=== PATIENT | male | born 1960 | race Caucasian/White ===

== ENCOUNTER → 2021-02-01 10:02 | Outpatient (BNVA) | payer OTHER, SELFPAY | PROVIDERS: PCP Internal Medicine; Visit Provider Internal Medicine | DX: S60.042A Contusion of left ring finger without damage to nail, initial encounter (principal); W23.0XXA Caught, crushed, jammed, or pinched between moving objects, initial encounter | CPT/HCPCS: 73130; 99203 ==

== ENCOUNTER 2023-06-18 08:01 | Outpatient (REF) | payer OTHER, SELFPAY | END 2023-06-18 08:02 | disposition home or self-care (01) | LOC: HO.BBR 08:01 | PROVIDERS: PCP Internal Medicine; Visit Provider Nurse Practitioner Family | DX: D45 Polycythemia vera (principal) | CPT/HCPCS: 85014; 85018; 99195 ==

== ENCOUNTER 2023-09-12 07:56 | Outpatient (REF) | payer OTHER, SELFPAY | END 2023-09-12 07:57 | disposition home or self-care (01) | LOC: HO.BBR 07:56 | PROVIDERS: Visit Provider Nurse Practitioner Family | DX: D45 Polycythemia vera (principal) | CPT/HCPCS: 85018 ==

== ENCOUNTER 2023-12-12 08:09 | Outpatient (REF) | payer OTHER, SELFPAY | END 2023-12-12 08:10 | disposition home or self-care (01) | LOC: HO.BBR 08:09 | PROVIDERS: PCP Internal Medicine; Visit Provider Nurse Practitioner Family | DX: D45 Polycythemia vera (principal) | CPT/HCPCS: 85018; 99195 ==

== ENCOUNTER 2024-03-10 08:05 | Outpatient (REF) | payer OTHER, SELFPAY | END 2024-03-10 08:06 | disposition home or self-care (01) | LOC: HO.BBR 08:05 | PROVIDERS: PCP Internal Medicine; Visit Provider Nurse Practitioner Family | DX: D45 Polycythemia vera (principal) | CPT/HCPCS: 85014; 85018; 99195 ==

== ENCOUNTER 2024-05-25 08:16 | Outpatient (REF) | payer OTHER, SELFPAY | END 2024-05-25 08:17 | disposition home or self-care (01) | LOC: HO.BBR 08:16 | PROVIDERS: Visit Provider Nurse Practitioner Family | DX: D45 Polycythemia vera (principal) | CPT/HCPCS: 85014; 85018; 99195 ==

== ENCOUNTER 2024-07-20 08:12 | Outpatient (REF) | payer OTHER, SELFPAY ==
--- OUTSIDE RECORDS SUMMARY | 2024-07-20 08:45 | XMS_ITS | Patient Health Record ---
Author Organization Bella Concepcion MD Address [address] [phone] Care Team Providers Care Steelscope Operator Name Role Phone Bella Concepcion Primary Care Provider Nikole Hare Unavailable [phone] Allergies No Known Allergies Results Component Value Reference Range Notes CBC With Differential/Platel [id number] Reviewed date:01/22/2024 05:42:52 PM Interpretation: Performing Lab:[facility], [address] [place] [address], Phone - [phone], Director - Esther Notes/Report: Test(s) 188483-Oymgkxe microti IgG was developed and its performance characteristics determined by [facility]. It has not been cleared or approved by the Food and Drug Administration. WBC 7.1 3.4-10.8 x10E3/uL RBC 5.74 4.14-5.80 x10E6/uL Hemoglobin 17.3 13.0-17.7 g/dL Hematocrit 52.3 37.5-51.0 % MCV 91 79-97 fL MCH 30.1 26.6-33.0 pg MCHC 33.1 31.5-35.7 g/dL RDW 13.9 11.6-15.4 % Platelets 193 150-450 x10E3/uL Neutrophils 58 Not Estab. % Lymphs 34 Not Estab. % Monocytes 7 Not Estab. % Eos 1 Not Estab. % Basos 0 Not Estab. % Neutrophils (Absolute) 4.1 1.4-7.0 x10E3/uL Lymphs (Absolute) 2.4 0.7-3.1 x10E3/uL Monocytes(Absolute) 0.5 0.1-0.9 x10E3/uL Eos (Absolute) 0.1 0.0-0.4 x10E3/uL Baso (Absolute) 0.0 0.0-0.2 x10E3/uL Immature Granulocytes 0 Not Estab. % Immature Grans (Abs) 0.0 0.0-0.1 x10E3/uL Sedimentation Rate-[facility] [id number] Reviewed date:01/22/2024 05:42:52 PM Interpretation: Performing Lab:[facility] [address], Phone - [phone], Director - [facility] Notes/Report: Test(s) 615369-Rooresa microti IgG was developed and its performance characteristics determined by [facility]. It has not been cleared or approved by the Food and Drug Administration. Sedimentation Rate-[facility] 7 0-30 mm/hr C-Reactive Protein, Quant-00 6627 Reviewed date:01/22/2024 05:42:52 PM Interpretation: Performing Lab:[facility] [address], Phone - [phone], Director - [facility] Notes/Report: Test(s) 600709-Mrrzsyn microti IgG was developed and its performance characteristics determined by [facility]. It has not been cleared or approved by the Food and Drug Administration. C-Reactive Protein, Quant 2 0-10 mg/L Tick-borne Disease Ab Profil [id number] Reviewed date:01/22/2024 05:42:52 PM Interpretation: Performing Lab:[facility] [address], Phone - [phone], Director - [facility] Notes/Report: Test(s) 064442-Aflgeor microti IgG was developed and its performance characteristics determined by [facility]. It has not been cleared or approved by the Food and Drug Administration. Lyme Total Antibody PETRA Negative Negative Lyme antibodies not detected. Reflex testing is not indicated. No laboratory evidence of infection with B. burgdorferi (Lyme disease). Negative results may occur in patients recently infected (less than or equal to 14 days) with B. burgdorferi. If recent infection is suspected, repeat testing on a new sample collected in 7 to 14 days is recommended. Babesia microti IgG <1:10 Neg:<1:10 E. chaffeensis IgG Negative Neg:<1:64 A. phagocytophilum IgG Negative Neg:<1:64 Result Comments: Antibody titers may be negative in the first 7-10 days of illness. A four-fold rise in IgG antibody titers for Babesia microti, Anaplasma phagocytophilum, and/or Ehrlichia chaffeensis in paired samples (acute and convalescent) supports the diagnosis of babesiosis, anaplasmosis, and/or ehrlichiosis, respectively. PDF Report Reviewed date:01/22/2024 05:42:53 PM Interpretation: Performing Lab:[facility], [address] [place] [address], [place], Phone - [phone], Director - Esther Notes/Report: Test(s) 450014-Zibdrjg microti IgG was developed and its performance characteristics determined by [facility]. It has not been cleared or approved by the Food and Drug Administration. CBC Reviewed date:08/26/2023 08:09:57 AM Interpretation: Performing Lab: Notes/Report: Original Ordering Provider: MIGUEL ANGEL DOCKERY PA-C [employer], [place] [address] Journeyman Painter - [employer]aning MD WBC 8.4 4.8-10.8 x10-3/uL RBC 5.6 4.5-5.5 x10-6/uL HEMOGLOBIN 16.3 13.5-17.5 g/dL HEMATOCRIT 50.7 42-54 % MCV 90.7 79-98 fL MCH 29.2 27-32 pg MCHC 32.1 32-37 g/dL RDW 13.8 11-15 % PLT COUNT 211 130-400 x10-3/uL MEAN PLATELET VOLUME 10.4 7-11 fL NRBC % AUTO 0.0 <1 % NRBC # AUTO 0.00 <0.1 x10-3/uL TOTAL AND FREE TESTOSTERONE Reviewed date:08/26/2023 08:09:57 AM Interpretation: Performing Lab: Notes/Report: FEMALES: pre-menopausal 10.8 - >180 post-menopausal 23.2 - 159.1 MALES: 21-49 years 14.6 - 94.6 50-89 years 21.6 - 113.1 CHILDREN: No established reference range Over the counter supplements containing high doses of biotin may interfere with this assay. If interference is suspected, patients shoud be retested after refraining from biotin supplements for 72 hours. Note Original Ordering Provider: MIGUEL ANGEL DOCKERY PA-C [employer], a member of [address] [address] Journeyman Painter - Omayra Cleaning MD TESTOSTERONE 757 229-902 ng/dL Note Original Ordering Provider: MIGUEL ANGEL DOCKERY PA-C [employer], [place] [address] Journeyman Painter - Omayra Cleaning MD ALBUMIN 4.2 3.2-5.0 G/dL SEX HORMONE BINDING GLOBULIN 19.9 FREE TESTOSTERONE 22.2 4.6-22.4 ng/dL BIOAVAILABLE TESTOSTERONE 507.6 110.0-575.0 ng/ dL CBC Reviewed date:03/10/2024 08:23:33 AM Interpretation: Performing Lab: Notes/Report: Original Ordering Provider: JUAN HUNTER [employer], [place] [address] Journeyman Painter - Omayra Cleaning MD WBC 10.0 4.8-10.8 x10-3/uL RBC 6.2 4.5-5.5 x10-6/uL HEMOGLOBIN 18.5 13.5-17.5 g/dL HEMATOCRIT 55.8 42-54 % MCV 89.7 79-98 fL MCH 29.7 27-32 pg MCHC 33.2 32-37 g/dL RDW 13.7 11-15 % PLT COUNT 215 130-400 x10-3/uL MEAN PLATELET VOLUME 9.8 7-11 fL NRBC % AUTO 0.0 <1 % NRBC # AUTO 0.00 <0.1 x10-3/uL PROSTATIC SPECIFIC ANTIGEN Reviewed date:03/10/2024 08:23:34 AM Interpretation: Performing Lab: Notes/Report: Original Ordering Provider: JUAN HUNTER PROSTATIC SPECIFIC ANTIGEN 0.8 0.0-4.0 ng/mL The Siemens Advia Nimbus Conceptsaur Chemiluminescent Immunoassay is used. Results obtained with different assay methods or kits cannot be used interchangeably. Results cannot be interpreted as absolute evidence of the presence or absence of malignant disease TOTAL AND FREE TESTOSTERONE Reviewed date:03/10/2024 08:23:34 AM Interpretation: Performing Lab: Notes/Report: FEMALES: pre-menopausal 10.8 - >180 post-menopausal 23.2 - 159.1 MALES: 21-49 years 14.6 - 94.6 50-89 years 21.6 - 113.1 CHILDREN: No established reference range Over the counter supplements containing high doses of biotin may interfere with this assay. If interference is suspected, patients shoud be retested after refraining from biotin supplements for 72 hours. TESTOSTERONE 235 229-902 ng/dL Note [employer], a member of [address] [address] Journeyman Painter - Omayra Cleaning MD ALBUMIN 4.4 3.2-5.0 G/dL SEX HORMONE BINDING GLOBULIN 20.3 FREE TESTOSTERONE 5.8 4.6-22.4 ng/dL BIOAVAILABLE TESTOSTERONE 138.0 110.0-575.0 ng/ dL Reason For Referral No Information Medications Medication SIG (Take, Route, Frequency, Duration) Notes Start Date End Date Status Farxiga 10 MG TAKE 1 TABLET BY MOUTH EVERY DAY for 90 days Brand name Only Active Carvedilol 3.125 MG 1 tablet with food Oral Twice a day for 30 Days Active Pravastatin Sodium 40 MG TAKE 1 TABLET B Y MOUTH EVERY DAY for 90 Active Spironolactone 25 MG 1 tablet Orally for 30 day(s) Active Centrum Silver - as directed Orally Active Entresto 97-103 MG TAKE 1 TABLET BY MOUTH TWICE A DAY for 90 Active Finasteride 5 MG TAKE 1 TABLET BY MOUTH EVERY DAY Oral for 90 Active Probiotic - as directed Orally Active Immunizations Vaccine Route Administration Date Status Comme nts Td (adult) preservative free Unknown 06/21/2004 Administered Td (adult) preservative free Unknown 05/12/2012 Administered Pneumococcal polysaccharide PPV23 Unknown 05/03/2008 Administered Influenza-Afluria (IIV4) IM Intramuscular 03/14/2017 Admin istered [id number] Afluria-Single IM Intramuscular 03/18/2018 Administered Influenza, seasonal, injectable, preservative free, 4 yrs and above IM Intramuscular 01/18/2016 Administered PWMLY-96-Bppsaqx Vaccine Unknown 06/04/2020 Administere d SONAR-09-Giikbyy Vaccine Unknown 07/05/2020 Administere d *Influenza-Medicare-AS IM Intramuscular 03/13/2021 Adminis tered Social History Tobacco Use: Social History Observation Description Date Details (start date - stop date) Former Smoker NA - NA Alcohol Screen (Audit-C) Question Answer Notes Did you have a drink contain ing alcohol in the past year? Yes How often did you have a dri nk containing alcohol in the past year? 2 to 3 times a week (3 points) How many drinks did you have on a typical day when you were drinking in the past year? 1 or 2 drinks (0 point) How often did you have 6 or more drinks on one occasion in the past year? Never (0 point) Points 3 Interpretation Negative Tobacco Control (Standard) Question Answer Notes Tobacco use: Former smoker How long has it been since you last smoked? 5-10 years Problems Problem Type SNOMED Code ICD Code Onset Dates Problem Status W/U Status Risk Notes Problem Vitamin D deficiency (38902244) Vitamin D deficiency, unspecified (E55.9) Active confirmed Problem Mixed hyperlipidemia (638834655) Mixed hyperlipidemia (E78.2) Active confirmed Problem Tobacco user (866368872) Nicotine dependence, cigarettes, in remission (F17.211) Active confirmed Problem Hypertensive heart AND renal disease (37206052) Hypertensive heart and chronic 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 heart failure, with stage 1 through stage 4 chronic kidney disease, or unspecified chronic kidney disease (I13.10) Active confirmed Problem Cardiomyopathy (95074925) Cardiomyopathy, unspecified (I42.9) Active confirmed Problem Ventricular premature depolarization (994252147) Ventricular premature depolarization (I49.3) Active confirmed Problem Chronic systolic heart failure (882069111) Chronic systolic (congestive) heart failure (I50.22) Active confirmed Problem Impingement syndrome of shoulder region (582548086) Impingement syndrome of right shoulder (M75.41) Active confirmed Problem Chronic kidney disease stage 2 (520225320) Chronic kidney disease, stage 2 (mild) (N18.2) Active confirmed Problem Paresthesia (finding) (20618030) Paresthesia of skin (R20.2) Active confirmed Problem Automatic implantable cardiac defibrillator in situ (246702261) Presence of automatic (implantable) cardiac defibrillator (Z95.810) Active confirmed Problem Benign prostatic hypertrophy without outflow obstruction (085248645) Benign prostatic hyperplasia without lower urinary tract symptoms (N40.0) Active confirmed Problem Body mass index 35.00 to 39.99 (512684711214372) Body mass index [BMI] 37.0-37.9, adult (Z68.37) Active confirmed Problem Ventricular tachycardia (disorder) (01924890) Ventricular tachycardia, unspecified (I47.20) Active confirmed Problem Testicular hypofunction (387428484) Testicular hypofunction (E29.1) Inactive confirmed Problem Tinnitus (21344531) Tinnitus, unspecified ear (H93.19) Inactive confirmed Problem Chronic kidney disease stage 3 (107132025) Chronic kidney disease, stage 3 (moderate) (N18.3) Problem resolved confirmed Vital Signs Heart Rate 83 /min 01/19/2024 Oximetry 97 % 01/19/2024 Height 5 ft 7 in in 01/19/2024 Weight 223 lbs 01/19/2024 BMI 34.92 kg/m2 01/19/2024 Encounters Encounter Location Date Provider Diagnosis Bella Concepcion MD [address] [id number] 01/22/2024 Bella Concepcion MD [address] [id number] 01/31/2024 Bella Concepcion MD [address] [id number] 01/19/2024 Nikole Hare Pain in right elbow M25.521 ; Pain in unspecified joint M25.50 and Trigger finger, right ring finger M65.341 Assessments Encounter Date Diagnosis (ICD Code) Assessment Notes Treatment Notes Treatment Clinical Notes Section Notes 01/19/2024 Pain in unspecified joint (ICD-10 - M25.50) See plan above 01/19/2024 Pain in right elbow (ICD-10 - M25.521) Due to patient his presenting symptoms and normal exam findings on exam today. Will obtain lab work including a tickborne panel given patient's migrating joint pain that has been present for months. 01/19/2024 Trigger finger, right ring finger (ICD-10 - M65.341) Spent much time discussing patient's right ring finger pain and suspected trigger finger. Patient is agreeable to be seen at the [facility] walk-in clinic today as he would benefit from an injection to release tension in his ring finger. Discussed with patient the importance of proper management of a trigger finger to ensure that it does not become contracted where he will require surgical intervention to fix the limited range of motion Plan Of Treatment Pending Test Test Name Order Date 25OH VITAMIN D 06/27/2022 COMPLETE CBC WITH DIFF 06/27/2022 COMPLETE URINALYSIS 06/27/2022 COMPREHENSIVE METABOLIC PANEL 06/27/2022 LIPID PANEL W REFLEX TO DLDL 06/27/2022 PSA 06/27/2022 VITAMIN D, 25-HYDROXY 08/14/2020 VITAMIN D, 25-HYDROXY 01/24/2020 US Bladder 10/05/2019 Next Appt Details Provider Name:Bella Concepcion , 10/06/2024 03:30:00 PM, [address] [place] [address], [address], [place], [place], [phone], Insurance Providers Payer Name Payer Address Payer Phone Subscriber Number Group Number Insured Name Patient Relationship to Insured Coverage Start Date Coverage End Date [employer] [address] [place] [phone] [id number] Jas Saravia Self - patient is the insured Medical (General) History Medical History History ICD Code Dilated cardiomyopathy Essential (primary) hypertension I10 Chronic systolic (congestive) heart fail ure I50.22 Presence of automatic (implantable) card iac defibrillator Z95.810 Ventricular tachycardia I47.2 Chronic kidney disease, stage 3 (moderat e) N18.3 Vitamin D deficiency, unspecified E55.9 Chronic kidney disease, stage 3 (moderat e) (resolved 06/27/2022) undefined Surgical History Surgery Date(Month/Year) automatic implantable cardioverter defib rillator (AICD) shoulder repair, RIGHT umbilical hernia repair Hospitalization History Reason Date(Month/Year)
--- OUTSIDE RECORDS SUMMARY | 2024-07-20 08:45 | XMS_ITS | Clinical Summary ---
Author Organization [address] [place] [address] Address [address] [place] [address] Phone Care Team Providers Care Executive Coordinator Name Role Phone Bella Concepcion MD Primary Care Provider [phone] Allergies No known active allergies Medications aspirin 81 mg EC tablet Take 81 mg by mouth daily. Active cholecalciferol (VITAMIN D-3) 25 mcg (1,000 unit) capsule Take by mouth daily. Active finasteride (PROSCAR) 5 mg tablet Take 5 mg by mouth daily. Active sildenafiL (VIAGRA) 100 mg tablet as needed. Active multivitamin (MULTIPLE VITAMINS ORAL) Take 1 tablet by mouth daily. 01/19/20 14 Active spironolactone (ALDACTONE) 25 mg tablet Take 1 tablet (25 mg total) by mouth 1 (one) time each day. 90 tablet 3 05/03/20 24 Active metoprolol succinate (TOPROL-XL) 25 mg 24 hr tablet TAKE 2 TABLETS BY MOUTH DAILY FOR 360 DAYS. 180 tablet 1 07/01/19 25 Active sacubitriL-vals kayy (Entresto) 97-103 mg per tablet Take 1 tablet by mouth 2 (two) times a day. Take by mouth 2 times daily. 180 each 2 07/15/19 25 025 Active dapagliflozin propanediol (Farxiga) 10 mg tablet Take 1 tablet (10 mg total) by mouth 1 (one) time each day. 90 each 1 07/15/19 25 025 Active pravastatin (PRAVACHOL) 40 mg tablet Take 1 tablet (40 mg total) by mouth at bedtime. 90 each 2 07/15/19 25 025 Active dapagliflozin propanediol (Farxiga) 10 mg tablet Take 10 mg by mouth daily. 03/05/20 22 025 Discontinued(Re order) metoprolol succinate (TOPROL-XL) 25 mg 24 hr tablet Take 2 Tablets by mouth daily for 360 days. 06/24/19 24 025 Discontinued pravastatin (PRAVACHOL) 40 mg tablet Take 40 mg by mouth daily. 025 Discontinued(Re order) sacubitriL-vals kayy (Entresto) 97-103 mg per tablet Take by mouth 2 times daily. 025 Discontinued(Re order) Active Problems Problem Noted Date Diagnosed Date PVC (premature ventricular contraction) 05/07/20 23 ICD (implantable cardioverter-defibrillator) in place 08/19/2022 Overview (04/22/2024): Last Assessment & Plan: Normally functioning ICD. No recent episodes of ventricular tachycardia. 3 years of battery longevity remaining. Postural dizziness with presyncope 04/09/2022 Cardiomyopathy 04/26/2021 JENAE (obstructive sleep apnea) 04/26/2021 Chest pain 01/08/2021 Overview (04/22/2024): Chest discomfort Chest pain Chronic systolic heart failure 01/08/2021 Overview (04/22/2024): Chronic systolic heart failure Last Assessment & Plan: Appears euvolemic on exam today. Remains remarkably active and has been has been losing weight through diet and exercise consistently. He he is on goal-directed medical therapy at maximum tolerated doses. Continue with current current medications, low-sodium diet, low-sodium diet and monitoring of weight. Primary prevention ICD in place. 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 Encounters Date Type Department Care Team Description 07/14/2024 10:40 AM EST Office Visit [facility] Cardiology [facility] - [address] [place] [address] Sherrie Weiss PA PVC (premature ventricular contraction) (Primary Dx); Dyslipidemia; Nonischemic congestive cardiomyopathy (CMS/HCC) 07/14/2024 Telephone [facility] - [address] [place] [address] Jose Kinney MA FMLA (Form dropped off) 05/18/2024 12:20 PM EST Ancillary Procedure [facility] Cardiology [facility] - [address] [place] [address] 05/18/2024 Telephone [facility] - [address] [place] [address] Heydi Rodriges MA from Last 3 Months Immunizations Name Administration Dates Next Due Moderna SARS-CoV-2 COVID-19, mRNA, LNP-S, preservative free 06/04/2020 Social History Tobacco Use Types Packs/Day Years Used Date Smoking Tobacco: Former Cigarettes Q uit: 05/12/2013 Smokeless Tobacco: Never Alcohol Use Standard Drinks/Week Comments Not Currently 1 (1 standard drink = 0.6 oz pur e alcohol) Sex and Gender Information Value Date Recorded Sex Assigned at Not on file Legal Sex Male 6:48 PM EST Gender Identity Not on file Sexual Orientation Not on file Obstetrics History Last Filed Vital Signs Vital Sign Reading Time Taken Comments Blood Pressure 126/78 07/14/2024 11:17 AM EST Pulse 75 07/14/2024 10:45 AM EST Temperature - - Respiratory Rate - - Oxygen Saturation 97% 07/14/2024 10:45 AM EST Inhaled Oxygen Concentration - - Weight 107 kg (236 lb) 07/14/2024 10:45 AM EST Height 170.2 cm (5' 7 ) 07/14/2024 10:45 AM EST Body Mass Index 36.96 07/14/2024 10:45 AM EST Plan of Treatment Upcoming Encounters Date Type Department Care Team (Late st Contact Info) Description 08/19/2024 4:00 PM EDT Ancillary Procedure [facility] Cardiology [facility] - [facility] [address] [place] [address] 03/15/2025 9:55 AM EST Office Visit [facility] [address] [place] [phone] Chester Weiner MD [address] [place] [address] Health Maintenance Due Date Last Done Comments Pneumococcal Vaccine: 50+ Years (1 of 2 - PCV) 1981 Pneumococcal Vaccine: Pediatrics (0 to 5 Years) and At-Risk Patients (6 to 64 Years) (1 of 2 - PCV) 1981 Zoster Vaccines (1 of 2) 2012 Cholesterol Screening (Lipid Panel) 04/20/2022 Colorectal Cancer Screening: Colonoscopy 04/20/2022 Depression Screening 04/20/2022 HIV Screening 04/20/2022 Hepatitis C Screening 04/20/2022 Social Influencers of Health Screening 04/20/2022 Hypertension/CHF/CAD Annual BMP Blood Test 05/07/2024 05/07/2023 DTaP,Tdap,and Td Vaccines (3 - Td or Tdap) 02/12/2034 02/13/2024, 05/23/2012 RSV Immunization Patients 60+ Years Old Completed 01/23/2023 COVID-19 Vaccine Completed 02/13/2024, , 02/16/2022, Additional history exists Influenza Vaccine Completed 02/13/2024, , 03/13/2021 HIB Vaccines Aged Out No longer eligi ble based on patient's age to complete this topic HPV Vaccines Aged Out No longer eligi ble based on patient's age to complete this topic Hepatitis A Vaccines Aged Out No long er eligible based on patient's age to complete this topic Hepatitis B Vaccines Aged Out No long er eligible based on patient's age to complete this topic IPV Vaccines Aged Out No longer eligi ble based on patient's age to complete this topic MMR Vaccines Aged Out No longer eligi ble based on patient's age to complete this topic Meningococcal ACWY Vaccine Aged Out N o longer eligible based on patient's age to complete this topic Meningococcal B Vacine Aged Out No lo nger eligible based on patient's age to complete this topic RSV Immunization Patients Under 20 months Aged Out No longer eligible based on patient's age to complete this topic Varicella Vaccines Aged Out No longer eligible based on patient's age to complete this topic Medical Devices Implanted Type Area Motor Builder Assembler Device Identifier Shelf Expiration Date Model / Serial / Lot Medt-Card Evera Xt Vr [id number] Implanted:02/10 (Quantity not on file) Cardiac ICD [employer] - CARDIAC RHYTH-CRDM EVERA XT VR [id number] / [id number] / Procedures Procedure Name Priority Date/Time Associated Diagnosis Comments ECG 12-LEAD Routine 07/14/2024 10:53 AM EST PVC (premature ventricular contraction) CARDIAC DEVICE CHECK- REMOTE- MURJ Routine 05/18/2024 12:17 PM EST ANNUAL BMP BLOOD TEST Routine 05/07/2023 from Last 3 Months or Most Recently Relevant to Health Maintenance Results * ECG 12 lead (07/14/2024 10:53 AM EST) Ventricular Rate ECG 75 BPM GEMUSE Atrial Rate 75 BPM GEMUSE P-R Interval 180 ms GEMUSE QRS Duration 158 ms GEMUSE Q-T Interval 422 ms GEMUSE QTc 471 ms GEMUSE P Wave [place] 50 degrees GEMUSE R [place] 99 degrees GEMUSE T [place] 47 degrees GEMUSE ECG Interpretation Normal sinus rhythm Right bundle branch block When compared with ECG of 09-JAN-2016 11:28, No significant change was found Confirmed by FRANCO CHAIDEZ ([id number]) on 07/19/2024 4:47:22 AM GEMUSE 07/14/2024 10:5 0 AM EST 07/19/2024 4:47 AM EDT us Sherrie MAIER ECG ORDERABLES Edited Result - Final GEMUSE * Cardiac device check - Remote- MURJ (05/18/2024 12:17 PM EST) Date Time Interrogation Session [id number] CV DEVICE CHECK Type Interrogation Session Remote CV DEVICE CHECK Implantable Pulse Generator Motor Builder Assembler MDT CV DEVICE CHECK Implantable Pulse Generator Type ICD CV DEVICE CHECK Implantable Pulse Generator Model Evera XT VR [id number] CV DEVICE CHECK Implantable Pulse Generator Serial Number [id number] CV DEVICE CHECK Implantable Pulse Generator Implant Date [id number] CV DEVICE CHECK Battery Remaining Longevity 21.0 CV DEVICE CHECK Battery Voltage 2.910 CV D EVICE CHECK Battery CLOTH TESTER QUALITY Trigger 2.727 CV DEVICE CHECK Battery Status Middle of Service CV DEVICE CHECK Capacitor Charge Time 4.224 CV DEVICE CHECK Dileep Statistic RV Percent Paced 0.01 CV DEVICE CHECK Lead Channel Sensing Intrinsic Amplitude 6.250 CV DEVICE CHECK Lead Channel Setting Sensing Sensitivity 0.30 CV DEVICE CHECK Lead Channel Impedance Value 437 CV DEVICE CHECK Lead Channel Pacing Threshold Amplitude 0.875 CV DEVICE CHECK Lead Channel Pacing Threshold Pulse Width 0.4 CV DEVICE CHECK Lead Channel RV Pacing Threshold Date 2024-05-17 CV DEVICE CHECK Lead Channel Setting Pacing Amplitude 2.000 CV DEVICE CHECK Lead Channel Setting Pacing Pulse Width 0.4 CV DEVICE CHECK Dileep Setting Mode (NBG Code) VVI CV DEVICE CHECK Dileep Setting Lower Rate Limit 40 CV DEVICE CHECK Therapy Statistic Recent Shocks Delivered 0 CV DEVICE CHECK Therapy Statistic Recent Shocks Aborted 0 CV DEVICE CHECK Therapy Statistic Recent ATP Delivered 0 CV DEVICE CHECK RV HV Impedance 78 CV D EVICE CHECK Zone Setting Type Category VF CV DEVICE CHECK Rate 200 CV DEVICE CHECK Therapies ATP During Charging, 25Jx1, 35Jx5 CV DEVICE CHECK Zone Setting Status On CV DEVICE CHECK Zone ID 3 CV DEVICE CHECK Zone Setting Type Category VT CV DEVICE CHECK Zone Setting Status Off CV DEVICE CHECK Zone ID 4 CV DEVICE CHECK Zone Setting Type Category VT CV DEVICE CHECK Zone Setting Status Off CV DEVICE CHECK Zone ID 5 CV DEVICE CHECK Zone Setting Type Category VT CV DEVICE CHECK Rate 167 CV DEVICE CHECK Rate 171 CV DEVICE CHECK Zone Setting Status ENABLED CV DEVICE CHECK Zone ID 6 CV DEVICE CHECK Date of Service 2024-05-29 CV DEVICE CHECK Anatomical Region Laterality Modality Device Interroga tion 05/18/2024 12:1 6 AM EST Impressions 05/18/2024 12:13 PM EST Normal Remote: No Events Sent to Triage for HF * Normal Device Function * Alerts or events: None * Battery: OK, 1.75 yrs * Sensing, impedance and thresholds reviewed * Programmed parameters reviewed * Presenting rhythm reviewed * Heart Rate Histograms reviewed * No significant changes noted Heart Failure Diagnostic: Elevated * Heart failure diagnostics assessed through the device * Status: Elevated Narrative Procedure Note Sherrie Weiss PA - 05/18/2024 IMPRESSION: Normal Remote: No Events Sent to Triage for HF * Normal Device Function * Alerts or events: None * Battery: OK, 1.75 yrs * Sensing, impedance and thresholds reviewed * Programmed parameters reviewed * Presenting rhythm reviewed * Heart Rate Histograms reviewed * No significant changes noted Heart Failure Diagnostic: Elevated * Heart failure diagnostics assessed through the device * Status: Elevated Sherrie MAIER CV IMPLANTABLE CARDIAC DEVICE TX OCEDURES Final Result * Annual BMP Blood Test (05/07/2023) Annual BMP Blood Test abstracted Historical Provider MD HEALTH MAINTENANCE Final Result from Last 3 Months or Most Recently Relevant to Health Maintenance Insurance [employer] Advance Directives Documents on File Type Date Recorded Patient Office Employee Expl anation Health Care Decision (hx) 01/21/2014 AD SWARTZ DIRECTIVE Health Care Decision (hx) 01/21/2014 AD SWARTZ DIRECTIVE Health Care Decision (hx) 01/21/2014 AD SWARTZ DIRECTIVE Health Care Decision (hx) 01/21/2014 AD SWARTZ DIRECTIVE Health Care Decision (hx) 01/21/2014 AD SWARTZ DIRECTIVE Health Care Decision (hx) 01/21/2014 AD SWARTZ DIRECTIVE Health Care Decision (hx) 01/21/2014 AD SWARTZ DIRECTIVE Health Care Decision (hx) 01/18/2014 AD SWARTZ DIRECTIVE Health Care Decision (hx) 01/18/2014 AD SWARTZ DIRECTIVE Health Care Decision (hx) 01/18/2014 AD SWARTZ DIRECTIVE Health Care Decision (hx) 01/18/2014 AD SWARTZ DIRECTIVE Health Care Decision (hx) 01/18/2014 AD SWARTZ DIRECTIVE Health Care Decision (hx) 01/18/2014 AD SWARTZ DIRECTIVE Health Care Decision (hx) 01/18/2014 AD SWARTZ DIRECTIVE Care Teams Executive Coordinator Relationship Specialty Start Date End Date Bella Concepcion MD PCP - General 01/15/14
--- OUTSIDE RECORDS SUMMARY | 2024-07-20 08:45 | XMS_ITS ---
Author Organization Bella Concepcion MD Address [address] [place] [phone] Care Team Providers Care Flight Attendant Name Role Phone Bella Concepcion Primary Care Provider [phone] REASON FOR VISIT AWV needed Encounters Encounter Location Date Provider Diagnosis Bella Concepcion MD [address] AD[address] TE [address] [place] [phone] 01/31/2024 Bella Concepcion Plan Of Treatment Next Appt Details Provider Name:Bella Concepcion , 10/06/2024 03:30:00 PM, [address] [place] [address], [phone], Progress Notes * Jas HERNA[birth year]DEZDOB:[birth year] (63 yo M)Acc No.[id number]:01/31/2024 Patient:?Jas HERNANDEZ :1960???Age:63 Y???Sex:Male Address:[address] [place] [address], * true * Date:? Generated for Printi skye/Asher/eTransmitting on:?07/20/2024 08:45 AM EDT
--- OUTSIDE RECORDS SUMMARY | 2024-07-20 08:46 | XMS_ITS | Encounter Summary ---
Author Organization [facility] [place] [address] Care Team Providers Care Electronics Assembler And Tester Name Role Phone Bella Concepcion MD Primary Care Provider [phone] Reason for Visit * Reason Onset Date Comments FMLA 07/14/2024 Form dropped off Encounter Details Date Type Department Care Team (Late st Contact Info) Description 07/14/2024 Telephone [facility] Cardiology [facility] - [address] [facility] [address] [place] [phone] Jose Kinney MA FMLA (Form dropped off) Social History Tobacco Use Types Packs/Day Years [...] on file Sexual Orientation Not on file documented as of this encounter Progress Notes * Jose Kinney MA - 07/14/2024 11:23 AM EST Patient dropped off FMLA form. documented in this encounter Plan of Treatment Upcoming Encounters Date Type Department Care Team (Late st Contact Info) Description 08/19/2024 4:00 PM EDT Ancillary Procedure [facility] Cardiology [facility] - [address] [facility] [address] [place] [address] 03/15/2025 9:55 AM EST Office Visit [facility] Cardiology [facility] - [address] [place] [address] Chester Weiner MD [address] [place] [address] documented as of this encounter Visit Diagnoses Not on filedocumented in this encounter Care Teams Electronics Assembler And Tester Relationship Specialty Start Date End Date Bella Concepcion MD PCP - General 01/15/14 documented as of this encounter
--- OUTSIDE RECORDS SUMMARY | 2024-07-20 08:46 | XMS_ITS | Encounter Summary ---
Author Organization [facility] Address [address] [place] [address] Care Team Providers Care Needle Punch Machine Operator Name Role Phone Bella Concepcion MD Primary Care Provider [phone] Reason for Visit * Reason Comments Follow-up Encounter Details Date Type Department Care Team (Late st Contact Info) Description 07/14/2024 10:40 AM EST Office Visit [facility] [address] [place] [address] Sherrie Weiss PA [address] [place] [address] PVC (premature ventricular contraction) (Primary Dx); Dyslipidemia; Nonischemic congestive cardiomyopathy (CMS/HCC) Social History Tobacco Use Types Packs/Day Years [...] on file documented as of this encounter Last Filed Vital Signs Vital Sign Reading [...] Mass Index 36.96 07/14/2024 10:45 AM EST documented in this encounter Ordered Prescriptions Prescription Sig Dispense Quantity Refills Last Filled Start Date End Date pravastatin (PRAVACHOL) 40 mg tablet Take 1 tablet (40 mg total) by mouth at bedtime. 90 each 2 07/14/2024 10/12/2024 dapagliflozin propanediol (Farxiga) 10 mg tablet Take 1 tablet (10 mg total) by mouth 1 (one) time each day. 90 each 1 07/14/2024 10/12/2024 sacubitriL-valsart an (Entresto) 97-103 mg per tablet Take 1 tablet by mouth 2 (two) times a day. Take by mouth 2 times daily. 180 each 2 07/14/2024 10/12/2024 documented in this encounter Progress Notes * LIVIER Brar - 07/14/2024 10:40 AM EST Please call with any questions or concerns Sherrie MAIER-C [phone] [facility] [address] [place] [id number] Fasting labs * LIVIER Brar - 07/14/2024 10:40 AM EST Images from the original note were not included. [facility] CLEANER: Chester Weiner MD PCP: Bella Concepcion MD Jas Saravia is a 63 y.o. old male Past medical history includes- NICM initial EF 20% - Medtronic single-chamber AICD placed February 2014 for primary prevention. EKGwith right bundle branch block did not meet criteria BiV ICD- GDMT had been titrated, having symptomatic orthostasis 2022 after weight loss - coreg was decreased then stopped by PCP- with increased HR and PVC burden - toprol initiated. . Hyperlipidemia JENAE starting CPAP PVC high burden of up to 15% while off beta-dustin noted April 2023, transition to Toprol with further titration Cardiac testing -Echo October 2023 normal left atrial size, Definity used to delineate borders, global hypokinesis EF 40 to 45% grade 1 diastolic dysfunction no significant change from 2022 -Cardiac cath without obstructive disease-2013 He presents today for evaluation of his nonischemic cardiomyopathy. He has had no recent hospitalizations. He continues to work full-time has abstain from alcohol since last year in May 2023 whenhe had a syncopal episode when he had 2 glasses of wine and used Viagra. He denies presyncope, syncope, chest pain at rest or exertion, dyspnea at rest or exertion, orthopnea, PND, palpitations, lower leg edema, change in his weight. He goes to the gym 5 days a week, he walks on the treadmill briskly 3-1/2 miles in 45 minutes weight lifts 2 days a week. ACTIVE MEDICATIONS: Outpatient Medications Marked as Taking for the 07/14/24 encounter (Office Visit) with LIVIER Brar Medication Sig Dispense Refill aspirin 81 mg EC tablet Take 81 mg by mouth daily. cholecalciferol (VITAMIN D-3) 25 mcg (1,000 unit) capsule Take by mouth daily. dapagliflozin propanediol (Farxiga) 10 mg tablet Take 1 tablet (10 mg total) by mouth 1 (one) time each day. 90 each 1 finasteride (PROSCAR) 5 mg tablet Take 5 mg by mouth daily. metoprolol succinate (TOPROL-XL) 25 mg 24 hr tablet TAKE 2 TABLETS BY MOUTH DAILY FOR 360 DAYS. 180tablet 1 multivitamin (MULTIPLE VITAMINS ORAL) Take 1 tablet by mouth daily. pravastatin (PRAVACHOL) 40 mg tablet Take 1 tablet (40 mg total) by mouth at bedtime. 90 each 2 sacubitriL-valsartan (Entresto) 97-103 mg per tablet Take 1 tablet by mouth 2 (two) times a day. Take by mouth 2 times daily. 180 each 2 sildenafiL (VIAGRA) 100 mg tablet as needed. spironolactone (ALDACTONE) 25 mg tablet Take 1 tablet (25 mg total) by mouth 1 (one) time each day.90 tablet 3 [DISCONTINUED] dapagliflozin propanediol (Farxiga) 10 mg tablet Take 10 mg by mouth daily. [DISCONTINUED] pravastatin (PRAVACHOL) 40 mg tablet Take 40 mg by mouth daily. [DISCONTINUED] sacubitriL-valsartan (Entresto) 97-103 mg per tablet Take by mouth 2 times daily. ALLERGIES: No Known Allergies FAMILY HISTORY: No family history on file. SOCIAL HISTORY: Social History Tobacco Use Smoking status: Former Current packs/day: 0.00 Types: Cigarettes Quit date: 05/12/2013 Years since quittin.1 Smokeless tobacco: Never Substance Use Topics Alcohol use: Not Currently Alcohol/week: 1.0 standard drink of alcohol PHYSICAL EXAM: Blood pressure 126/78, pulse 75, height 1.702 m (67 ), weight 107 kg (236 lb), SpO2 97%. Body mass index is 36.96 kg/m??. Physical Exam Constitutional: Appearance: Normal appearance. He is obese. HENT: Head: Normocephalic. Mouth/Throat: Mouth: Mucous membranes are moist. Cardiovascular: Rate and Rhythm: Normal rate and regular rhythm. Pulses: Normal pulses. Heart sounds: Normal heart sounds. Pulmonary: Effort: Pulmonary effort is normal. Breath sounds: Normal breath sounds. Musculoskeletal: General: Normal range of motion. Skin: General: Skin is warm and dry. Capillary Refill: Capillary refill takes less than 2 seconds. Neurological: General: No focal deficit present. Mental Status: He is alert and oriented to person, place, and time. Psychiatric: Mood and Affect: Mood normal. Behavior: Behavior normal. EKG: Sinus rhythm with a chronic right bundle branch block rate 75 bpm unchanged TESTING: PAST MEDICAL HISTORY: Patient Active Problem List Diagnosis Date Noted PVC (premature ventricular contraction) 05/07/2023 ICD (implantable cardioverter-defibrillator) in place 08/19/2022 Postural dizziness with presyncope 04/09/2022 Cardiomyopathy (CMS/HCC) 04/26/2021 JENAE (obstructive sleep apnea) 04/26/2021 Chest pain 01/08/2021 Chronic systolic heart failure (CMS/HCC) 01/08/2021 Congestive heart failure (CMS/HCC) 01/08/2021 Right bundle branch block 01/08/2021 Dyslipidemia 01/08/2021 Irritant contact dermatitis 01/08/2021 Nonischemic congestive cardiomyopathy (CMS/HCC) 01/08/2021 As per AHA guidelines and previously established plan of care by Dr. Jaky Bar MD we discussed the following today: ASSESSMENT/PLAN: Problem List Items Addressed This Visit Dyslipidemia Relevant Medications sacubitriL-valsartan (Entresto) 97-103 mg per tablet pravastatin (PRAVACHOL) 40 mg tablet Other Relevant Orders Comprehensive metabolic panel Lipid panel with reflex to direct LDL Nonischemic congestive cardiomyopathy (CMS/HCC) Relevant Medications sacubitriL-valsartan (Entresto) 97-103 mg per tablet pravastatin (PRAVACHOL) 40 mg tablet Other Relevant Orders Comprehensive metabolic panel Lipid panel with reflex to direct LDL PVC (premature ventricular contraction) - Primary Relevant Medications sacubitriL-valsartan (Entresto) 97-103 mg per tablet pravastatin (PRAVACHOL) 40 mg tablet Other Relevant Orders ECG 12 lead (Completed) Comprehensive metabolic panel Lipid panel with reflex to direct LDL Nonischemic cardiomyopathy EF 40 to 45% by last echo appears euvolemic supported by thoracic impedance on device. No further orthostatic hypotension. Continue current medications surveillance labs ordered has not seen his PCP in some time. Hypertension initial elevated repeat well-controlled. Hyperlipidemia ideally LDL goal should be less than 70 surveillance labs ordered. JENAE compliant with CPAP. PVCs high burden off beta-dustin resume Toprol with resolution. Thank you for allowing us to participate in the care of this patient. Today's documentation was made using voice recognition software.This note may contain grammatical errors secondary to this software. Cosigned by Jaky Bar MD at 07/15/2024 7:52 PM EST documented in this encounter Plan of Treatment Upcoming Encounters Date Type Department Care Team (Late st Contact Info) Description 08/19/2024 4:00 PM EDT Ancillary Procedure [facility] [address] [place] [address] 03/15/2025 9:55 AM EST Office Visit [facility] [address] [place] [address] Chester Weiner MD [address] [place] [address] Scheduled Orders Name Type Priority Associated Diagnoses Orde r Schedule Comprehensive metabolic panel Lab Routine PVC (premature ventricular contraction) Dyslipidemia Nonischemic congestive cardiomyopathy (CMS/HCC) 1 Occurrences starting 07/14/2024 until 07/14/2025 Lipid panel with reflex to direct LDL Lab Routine PVC (premature ventricular contraction) Dyslipidemia Nonischemic congestive cardiomyopathy (CMS/HCC) 1 Occurrences starting 07/14/2024 until 07/14/2025 documented as of this encounter Procedures Procedure Name Priority Date/Time Associated Diagnosis Comments ECG 12-LEAD Routine 07/14/2024 10:53 AM EST PVC (premature ventricular contraction) documented in this encounter Results * ECG 12 lead (07/14/2024 10:53 AM EST) Ventricular Rate ECG 75 BPM GEMUSE Atrial Rate 75 BPM GEMUSE P-R Interval 180 ms GEMUSE QRS Duration 158 ms GEMUSE Q-T Interval 422 ms GEMUSE QTc 471 ms GEMUSE P Wave [place] 50 degrees GEMUSE R [place] 99 degrees GEMUSE T [place] 47 degrees GEMUSE ECG Interpretation Normal sinus rhythm Right bundle branch block When compared with ECG of 09-JAN-2016 11:28, No significant change was found Confirmed by FRANCO CHAIDEZ ([id number]) on 07/19/2024 4:47:22 AM GEMUSE 07/14/2024 10:5 0 AM EST 07/19/2024 4:47 AM EDT Sherrie MAIER ECG ORDERABLES Edited Result - Final GEMUSE documented in this encounter Visit Diagnoses Diagnosis PVC (premature ventricular contraction)- Primary Other premature beats Dyslipidemia Other and unspecified hyperlipidemia Nonischemic congestive cardiomyopathy (CMS/HCC) Encounter for adjustment or management of cardiac device documented in this encounter Discontinued Medications Medication Sig Discontinue Reason Start Date End Da te sacubitriL-valsartan (Entresto) 97-103 mg per tablet Take by mouth 2 times daily. Reorder 07/14/2024 dapagliflozin propanediol (Farxiga) 10 mg tablet Take 10 mg by mouth daily. Reorder 03/05/2022 07/14/2024 pravastatin (PRAVACHOL) 40 mg tablet Take 40 mg by mouth daily. Reorder 07/14/2024 documented as of this encounter Care Teams Needle Punch Machine Operator Relationship Specialty Start Date End Date Bella Concepcion MD PCP - General 01/15/14 documented as of this encounter
--- OUTSIDE RECORDS SUMMARY | 2024-07-20 08:46 | XMS_ITS ---
Author Organization Bella Concepcion MD Address [address] [place] [phone] Care Team Providers Care Lead Mechanic Name Role Phone Bella Concepcion Primary Care Provider [phone] REASON FOR VISIT labs Encounters Encounter Location Date Provider Diagnosis Bella Concepcion MD [address] [place] [phone] 01/22/2024 Bella Concepcion Plan Of Treatment Next Appt Details Provider Name:Bella Concepcion , 10/06/2024 03:30:00 PM, [address] [place] [address], [address], [phone], Progress Notes * Jas HERNA[birth year]DOB:[birth year] (63 yo M)Acc No.[id number]:01/22/2024 Patient:?Jas HERNANDEZ :1960???Age:63 Y???Sex:Male Address:[address] [place] [address], * true * Date:? Generated for Jvi skye/Asher/eTransmitting on:?07/20/2024 08:46 AM EDT
--- OUTSIDE RECORDS SUMMARY | 2024-07-20 08:47 | XMS_ITS ---
Author Organization Bella Concepcion MD Address [address] [facility] [address] [place] [phone] Care Team Providers Care Logger Name Role Phone Bella Concepcion Primary Care Provider [phone] Hare, Nikole Unavailable [phone] Allergies No Known Allergies Results Component Value Reference Range Notes CBC With Differential/Platel et-[id number] Reviewed date:01/22/2024 05:42:52 PM Interpretation: Performing Lab:[facility], [address] [place] [address], [facility], Phone - [phone], Director - Esther Notes/Report: Test(s) 007045-Bontddl microti IgG was developed and its performance characteristics determined by [facility]. It has not been cleared or approved [...] Immature Grans (Abs) 0.0 0.0-0.1 x10E3/uL Sedimentation Rate-[facility] n-[id number] Reviewed date:01/22/2024 05:42:52 PM Interpretation: Performing Lab:[facility] [address], Phone - [phone], Director - [facility] Notes/Report: Test(s) 442594-Xgaqvyr microti IgG was developed and its performance characteristics determined by [facility]. It has not been cleared or approved by the Food and Drug Administration. [facility]-30 mm/hr C-Reactive Protein, Quant-00 6627 Reviewed date:01/22/2024 05:42:52 PM Interpretation: Performing Lab:[facility] [address], Phone - [phone], Director - [facility] Notes/Report: Test(s) 682081-Veuwnfe microti IgG was developed and its performance characteristics determined by [facility]. It has not been cleared or approved by the Food and Drug Administration. C-Reactive Protein, Quant 2 0-10 mg/L Tick-borne Disease Ab Profil [id number] Reviewed date:01/22/2024 05:42:52 PM Interpretation: Performing Lab:[facility] [address], Phone - [phone], Director - [facility] Notes/Report: Test(s) 633742-Mwiprgk microti IgG was developed and its performance [...] is recommended. Babesia microti IgG <1:10 Neg:<1:10 Dena anneffeensis IgG Negative Neg:<1:64 A. phagocytophilum IgG Negative Neg:<1:64 Result Comments: Antibody titers may be negative in the first 7-10 days of illness. A four-fold rise in IgG antibody titers for Babesia microti, Anaplasma phagocytophilum, and/or Ehrlichia chaffeensis in paired samples (acute and convalescent) supports the diagnosis of babesiosis, anaplasmosis, and/or ehrlichiosis, respectively. PDF Report Reviewed date:01/22/2024 05:42:53 PM Interpretation: Performing Lab:[facility], [address] [place] [address], [place], Phone - [phone], Director - Esther Notes/Report: Test(s) 528327-Zxtxzvx microti IgG was developed and its performance characteristics determined by [facility]. It has not been cleared or approved by the Food and Drug Administration. REASON FOR VISIT Right Hand Trigger Finger Medications Medication SIG (Take, Route, Frequency, Duration) Notes Start Date End Date Status Farxiga 10 MG TAKE 1 TABLET BY MOUTH EVERY DAY for 90 days Brand name Only Active Carvedilol 3.125 MG 1 tablet with food Oral Twice a day for 30 Days Active Pravastatin Sodium 40 MG TAKE 1 TABLET B Y MOUTH EVERY DAY for 90 Active Entresto 97-103 MG TAKE 1 TABLET BY MOUTH TWICE A DAY for 90 Active Finasteride 5 MG TAKE 1 TABLET BY MOUTH EVERY DAY Oral for 90 Active Spironolactone 25 MG 1 tablet Orally for 30 day(s) Active Centrum Silver - as directed Orally Active Probiotic - as directed Orally Active Social History Tobacco Use: Social History Observation [...] been since you last smoked? 5-10 years Vital Signs Heart Rate 83 /min 01/19/2024 Height 5 ft 7 in in 01/19/2024 Weight 223 lbs 01/19/2024 BMI 34.92 kg/m2 01/19/2024 Oximetry 97 % 01/19/2024 Encounters Encounter Location Date Provider Diagnosis Bella Concepcion MD [address] [phone] 01/19/2024 Nikole Hare Pain in right elbow M25.521 ; Pain in unspecified joint M25.50 and Trigger finger, right ring finger M65.341 Assessments Encounter Date Diagnosis (ICD Code) Assessment Notes Treatment Notes Treatment Clinical Notes Section Notes 01/19/2024 Pain in right elbow (ICD-10 - M25.521) Due to patient his presenting symptoms and normal exam findings on exam today. Will obtain lab work including a tickborne panel given patient's migrating joint pain that has been present for months. 01/19/2024 Pain in unspecified joint (ICD-10 - M25.50) See plan above 01/19/2024 Trigger finger, right ring finger (ICD-10 - M65.341) Spent much time discussing patient's right ring finger pain and suspected trigger finger. Patient is agreeable to be seen at the [facility] walk-in clinic today as he would benefit from an injection to release tension in his ring finger. Discussed with patient the importance of proper management of a trigger finger to ensure that it does not become contracted where he will require surgical intervention to fix the limited range of motion Plan Of Treatment Next Appt Details Follow Up: as scheduled, [place] son: Provider Name:Bella Concepcion , 10/06/2024 03:30:00 PM, [address] [place] [address], [place] [address], [place], [place], [phone], Progress Notes * Jas SARAVIADOB:[birth year] (63 yo M)Acc No.[id number]:01/19/2024 Progress Notes Patient:?CHAIMARILEEJas Appointment Provider:?DEBI Hensley :1960???Age:63 Y???Sex:Male Sup ervising Provider:Nikole Hare DNP Date:01/19/2024 Address:[address] [place], [place] [id number] Pcp:Bella Concepcion Subjective: * Chief Complaints: * ???1. Right Hand Trigger Fin justino. * HPI: ???Constitutional:? Patient presents today with concerns of persistnet right knee pain. He states 1 month ago he woke up and his knee began to hurt. He denies any swelling, just pain deep within the knee which alters his ambulation. Today, he woke up with right elbow pain that began this morning. He denies any injury or trauma to area.?? Patient states concern is his ring finger on his right hand. He states this finger is painful and continues to get stuck. These concerns have worsened over the past 10 days. * ROS:?General/Constitutional:?Denies?Change in appetite.?Denies?Chills.?Denies?Fever.?Denies?Sleep disturbance.?Denies?Weight gain.?Denies?Weight loss.?Respiratory:?Denies?Cough.?Denies?Shortness of breath.?Denies?Shortness of breath with exertion.?Denies?Sputum production.?Denies?Wheezing.?Cardiovascular:?Denies?Chest pain.?Denies?Chest pain with exertion.?Denies?Claudication.?Denies?Dizziness.?Denies?Dyspnea on exertion.?Denies?Irregular heartbeat.?Denies?Palpitations.?Denies?Shortness of breath.?Denies?Weight gain.?Hematology:?Denies?Bleeding problems.?Denies?Easy bruising.?Denies?Prolonged bleeding.?Denies?Swollen glands.?Genitourinary:?Denies?Nocturia.?Denies?Blood in urine.?Denies?Difficulty urinating.?Denies?Frequent urination.?Musculoskeletal:?Patient complaining of?pain in right hand, ring finger.?Admits?Painful joints,?see HPI.? * Medical History:?Dilated car diomyopathy, Essential (primary) hypertension, Chronic systolic (congestive) heart failure, Presence of automatic (implantable) cardiac defibrillator, Ventricular tachycardia, Chronic kidney disease, stage 3 (moderate), Vitamin D deficiency, unspecified, Chronic kidney disease, stage 3 (moderate) (resolved 06/27/2022). * Social History:?Tobacco Use:?Tobacco Control (Standard)?Tobacco use:?Former smoker ?How long has it been since you last smoked??5-10 years ???Drugs/Alcohol:?Drugs?Have you used drugs other than those for medical reasons in the past 12 months??No ?Alcohol Screen (Audit-C)?Did you have a drink containing alcohol in the past year??Yes ?How often did you have a drink containing alcohol in the past year??2 to 3 times a week (3 points) ?How many drinks did you have on a typical day when you were drinking in the past year??1 or 2 drinks (0 point) ?How often did you have 6 or more drinks on one occasion in the past year??Never (0 point) ?Points?3 ?Interpretation?Negative ?Caffeine?Intake:?1-2 cups per day ?Do you smoke marijuana?: Denies. ?Do you drink alcohol?: Yes, Socially. ???Miscellaneous:?Exercise: yes, walking. ?Marital status: in relationship with male partner. ???Household:?Household?Marital status:? * Medications:?Taking Probioti c - Capsule as directed Orally , Taking Centrum Silver - Tablet as directed Orally , Taking Spironolactone 25 MG Tablet 1 tablet Orally , Taking Finasteride 5 MG Tablet TAKE 1 TABLET BY MOUTH EVERY DAY Oral , Taking Entresto 97-103 MG Tablet TAKE 1 TABLET BY MOUTH TWICE A DAY , Taking Carvedilol 3.125 MG Tablet 1 tablet with food Oral Twice a day , Taking Farxiga 10 MG Tablet TAKE 1 TABLET BY MOUTH EVERY DAY , Notes to Pharmacist: Brand name Only, Taking Pravastatin Sodium 40 MG Tablet TAKE 1 TABLET BY MOUTH EVERY DAY , Medication List reviewed and reconciled with the patient * Allergies:?N.K.D.A. Objective: * Vitals:?HR:83/min, Wt:223lbs , BMI:34.92Index, Ht:5 ft 7 in, Oxygen sat %:97%. Past Vitals:* 05/20/2023 Temp:95.3F, HR:84/min, BP: S itting Right Arm: 108/54 mm Hg,Standing Right Arm: 108/58mm Hg, Wt:233.00lbs, BMI:36.49Index, Ht:5 ft 7 in, Oxygen sat %:98% * 03/10/2023 Temp:97.6F, HR:83/min, BP:Si tting Right Arm:94/50mm Hg, Wt:233lbs, BMI:36.49Index, Ht:5 ft 7 in, Oxygen sat %:96% * 11/07/2022 HR:86/min, BP:108/56mm Hg, W t:239lbs, BMI:37.43Index, Ht:5 ft 7 in, Oxygen sat %:96% * Examination: ???General Examination: ?GENERAL APPEARANCE:?Age appropriate, in no acute distress, well developed, well nourished.?HEAD:? atraumatic, normocephalic.?EYES:? sclera anicteric, extraocular movement full and smooth.?ORAL CAVITY:?mucosa moist.?HEART:?regular rate and rhythm, S1, S2 normal.?LUNGS:?clear to auscultation bilaterally.?EXTREMITIES:?no clubbing, cyanosis, or edema. FROM of right elbow and knee, both active and passive. No redness or swelling present to elbows or knees.?Right ring finger with limited ROM due to pain..?NEUROLOGIC:?alert and oriented, gait normal.?PSYCH:? good eye contact, speech clear.? Assessment: * Assessment: 1.?Pain in unspecified joint - M25.50???2.?Pain in right elbow - M25.521 (Primary)???3.?Trigger finger, right ring finger - M65.341??? Plan: * Treatment: 2.?Pain in unspecified joint ?LAB: CBC With Differential/Platelet-[id number] (Collection Date & Time - 01/19/2024 11:23 AM) ?LAB: Sedimentation Pxrc-[id number] (Collection Date & Time - 01/19/2024 11:23 AM) ?LAB: C-Reactive Protein, Quant-[id number] (Collection Date & Time - 01/19/2024 11:23 AM) ?LAB: Tick-borne Disease Ab Profile-[id number] (Collection Date & Time - 01/19/2024 11:23 AM) Clinical Notes: See plan above?? 3.?Trigger finger, right rin g finger? Clinical Notes: Spent much time discussing patient's right ring finger pain and suspected trigger finger. Patient is agreeable to be seen at the [facility] walk-in clinic today as he would benefit from an injection to release tension in his ring finger. Discussed with patient the importance of proper management of a trigger finger to ensure that it does not become contracted where he will require surgical intervention to fix the limited range of motion?? * Labs:? * ?Lab: PDF Report ([facility] tion Date & Time - 01/19/2024 11:23 AM) * Follow Up:?as scheduled * Billing Information: * Visit Code:? 36916 Office Visit, Est Pt., Level 3. * Procedure Codes:? Review Notes: Bella Concepcion 02/04/2024 08:31:26 AM EDT > I was present and available for consultation duringthis visit. I have reviewed the encounter documentation and agree with the documentation provided by Nikole Hare DNP including assessment, treatment plan and discussion.* Sign off status: Completed true * Appointment Provider:?DEBI Hensley Date:?01/19/2024 Generated for Bernardo cheung/Asher/eTransmitting on:?07/20/2024 08:46 AM EDT History and Physical Notes * HPI (History of Present Illness) Category Sub-Category Detail Notes Category Not es Constitutional Patient presents today with concerns of persistnet right knee pain. He states 1 month ago he woke up and his knee began to hurt. He denies any swelling, just pain deep within the knee which alters his ambulation. Today, he woke up with right elbow pain that began this morning. He denies any injury or trauma to area. Patient states concern is his ring finger on his right hand. He states this finger is painful and continues to get stuck. These concerns have worsened over the past 10 days Examination Category Sub-Category Detail Notes Category Not es General Examination GENERAL APPEARANCE: Age appr opriate, in no acute distress, well developed, well nourished HEAD: atraumatic, normocep halic EYES: sclera anicteric, ex traocular movement full and smooth HEART: regular rate and rhy thm, S1, S2 normal LUNGS: clear to auscultatio n bilaterally NEUROLOGIC: alert and oriented, gait normal EXTREMITIES: no clubbing, cyanosi s, or edema. FROM of right elbow and knee, both active and passive. No redness or swelling present to elbows or knees. Right ring finger with limited ROM due to pain. PSYCH: good eye contact, sp eech clear ORAL CAVITY: mucosa moist
== END 2024-07-20 08:13 | disposition home or self-care (01) ==
LOC: HO.BBR 08:12
PROVIDERS: PCP Internal Medicine; Visit Provider Urology
DX: D75.1 Secondary polycythemia (principal)
CPT/HCPCS: 85014; 85018; 99195

== ENCOUNTER 2024-07-20 08:38 | Outpatient (REF) | payer OTHER, SELFPAY ==
[2024-07-20 10:15] LABS: Alanine Aminotransferase 24 U/L (0-40); Albumin Level 4.3 g/dL (3.5-5.0); Alkaline Phosphatase 47 U/L (39-117); Anion Gap 12 (12-20); Aspartate Amino Transferase 25 U/L (5-37); Bilirubin Total 0.8 mg/dL (0.0-1.0); Blood Urea Nitrogen 17 mg/dL (9-16); Calcium 9.1 mg/dL (8.4-10.2); Carbon Dioxide 25 mmol/L (22-29); Chloride 107 mmol/L (96-108); Cholesterol 168 mg/dL (<200); Estimated Glomerular Filt Rate > 60; Glucose Random 88 mg/dL (60-115); HDL Cholesterol 38 mg/dL (>40); LDL Cholesterol Calculated 107 mg/dL (<100); Potassium 3.9 mmol/L (3.3-5.1); Sodium 140 mmol/L (135-145); Total Protein 7.1 g/dL (6.5-8.0); Triglycerides 117 mg/dL (<150)
== END 2024-07-20 08:39 | disposition home or self-care (01) ==
LOC: HO.LAB 08:38
PROVIDERS: PCP Internal Medicine; Visit Provider Physician Assistant
DX: I42.0 Dilated cardiomyopathy (principal); E78.5 Hyperlipidemia, unspecified; I49.3 Ventricular premature depolarization
CPT/HCPCS: 36415; 80053; 80061

== ENCOUNTER 2024-09-20 08:05 | Outpatient (REF) | payer OTHER, SELFPAY ==
--- OUTSIDE RECORDS SUMMARY | 2024-09-20 08:09 | XMS_ITS | Clinical Summary ---
Author Organization [address] [place] [address] Address [address] [place] [address] Phone Care Team Providers Care Film Waxer Name Role Phone Bella Concepcion MD Primary Care Provider [phone] Allergies No known active allergies Medications aspirin 81 mg EC tablet Take 81 mg by mouth daily. Active cholecalciferol (VITAMIN D-3) 25 mcg (1,000 unit) capsule Take by mouth daily. Active finasteride (PROSCAR) 5 mg tablet Take 5 mg by mouth daily. Active sildenafiL (VIAGRA) 100 mg tablet as needed. Active multivitamin (MULTIPLE VITAMINS ORAL) Take 1 tablet by mouth daily. 01/18/2014 Active spironolactone (ALDACTONE) 25 mg tablet Take 1 tablet (25 mg total) by mouth 1 (one) time each day. 90 tablet 3 05/03/2024 Active metoprolol succinate (TOPROL-XL) 25 mg 24 hr tablet TAKE 2 TABLETS BY MOUTH DAILY FOR 360 DAYS. 180 tablet 1 07/01/2024 Active sacubitriL-vals kayy (Entresto) 97-103 mg per tablet Take 1 tablet by mouth 2 (two) times a day. Take by mouth 2 times daily. 180 each 2 07/14/2024 Active pravastatin (PRAVACHOL) 40 mg tablet Take 1 tablet (40 mg total) by mouth at bedtime. 90 each 2 07/14/2024 Active Farxiga 10 mg tablet Take 1 tablet (10 mg total) by mouth 1 (one) time each day. 90 tablet 1 07/22/2024 Active Active Problems Problem Noted Date Diagnosed Date PVC (premature ventricular contraction) 12/27/20 23 ICD (implantable cardioverter-defibrillator) in place 08/19/2022 Overview (04/22/2024): Last Assessment & Plan: Normally functioning ICD. No recent episodes of ventricular tachycardia. 3 years of battery longevity remaining. Postural dizziness with presyncope 04/09/2022 Cardiomyopathy (CMS/[facility] V24, CMS/HCC V28) 2020 JENAE (obstructive sleep apnea) 04/26/2021 Chest pain 01/08/2021 Overview (04/22/2024): Chest discomfort Chest pain Chronic systolic heart failure (CMS/[facility] V24, CMS /[facility] V28) 01/08/2021 Overview (04/22/2024): Chronic systolic heart failure Last Assessment & Plan: Appears euvolemic on exam today. Remains remarkably active and has been has been losing weight through diet and exercise consistently. He he is on goal-directed medical therapy at maximum tolerated doses. Continue with current current medications, low-sodium diet, low-sodium diet and monitoring of weight. Primary prevention ICD in place. 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 Encounters Date Type Department Care Team Description 08/19/2024 4:00 PM EDT Ancillary Procedure [facility] [address] [place] [address] Encounter for adjustment or management of cardiac device 08/17/2024 7:20 PM EDT Ancillary Procedure [facility] [address] [place] [address] 08/13/2024 4:25 PM EDT Ancillary Procedure [facility] [address] [place] [address] 07/22/2024 Telephone [facility] [address] [place] [address] Sherrie Weiss PA Med Refill (COVER My MEDS ) 07/14/2024 10:40 AM EST Office Visit [facility] [address] [place] [address] Sherrie Weiss PA PVC (premature ventricular contraction) (Primary Dx); Dyslipidemia; Nonischemic congestive cardiomyopathy (CMS/HCC V24, CMS/HCC V28) 07/14/2024 Telephone [facility] [address] [place] [address] Jose Kinney [place] FMLA (Form dropped off) from Last 3 Months Immunizations Name Administration [...] Care Team (Late st Contact Info) Description 03/15/2025 9:55 AM EST Office Visit [facility] [address] [facility] [address] [place] [address] Chester Weiner MD [address] [place] [address] 08/22/2025 4:30 PM EDT Ancillary Procedure [facility] - [facility] [address] [facility] [address] [place] [phone] Health Maintenance Due Date Last Done Comments [...] or Tdap) 02/12/2034 02/13/2024, 05/23/2012 RSV Immunization Adult Patients Completed 01/23/2023 COVID-19 Vaccine Completed 02/13/2024, , [...] age to complete this topic Meningococcal B Vaccine Aged Out No l onger eligible based on patient's age to complete this topic RSV Immunization Patients Under 20 months Aged Out No longer eligible based on patient's age to complete this topic Varicella Vaccines Aged Out No longer eligible based on patient's age to complete this topic Medical Devices Implanted Type Area Volunteer Services Supervisor Device Identifier Shelf Expiration Date Model / Serial / Lot Medt-Card Evera Xt Vr [id number] Implanted: by Chester Weiner MD (Quantity not on file) Cardiac ICD Left: Chest [employer] - CARDIAC RHYTH-CRDM EVERA XT VR [id number] / [id number] / Procedures Procedure Name Priority Date/Time Associated Diagnosis Comments CARDIAC DEVICE CHECK- IN CLINIC- MURJ Routine 08/19/2024 4:07 PM EDT Encounter for adjustment or management of cardiac device CARDIAC DEVICE CHECK- REMOTE- MURJ Routine 08/17/2024 7:19 PM EDT CARDIAC DEVICE CHECK- REMOTE- MURJ Routine 08/13/2024 4:24 PM EDT ECG 12-LEAD Routine 07/14/2024 10:53 AM EST PVC (premature ventricular contraction) ANNUAL BMP BLOOD TEST Routine 05/07/2023 from Last 3 Months or Most Recently Relevant to Health Maintenance Results * CARDIAC DEVICE CHECK- IN CLINIC- MURJ (08/19/2024 4:07 PM EDT) [facility] Date Time Interrogation Session [id number] CV DEVICE CHECK Implantable Pulse Generator Volunteer Services Supervisor MDT CV DEVICE CHECK Implantable Pulse Generator Type ICD CV DEVICE CHECK Implantable Pulse Generator Model Evera XT VR [id number] CV DEVICE CHECK Implantable Pulse Generator Serial Number [id number] CV DEVICE CHECK Implantable Pulse Generator Implant Date 20140301 CV DEVICE CHECK Battery Remaining Longevity 18.0 CV DEVICE CHECK Battery Status Middle of Service CV DEVICE CHECK Dileep Statistic RV Percent Paced 0.10 CV DEVICE CHECK Lead Channel Sensing Intrinsic Amplitude 7.900 CV DEVICE CHECK Lead Channel Setting Sensing Sensitivity 0.30 CV DEVICE CHECK Lead Channel Impedance Value 513 CV DEVICE CHECK Lead Channel Pacing Threshold Amplitude 0.750 CV DEVICE CHECK Lead Channel Pacing Threshold Pulse Width 0.4 CV DEVICE CHECK Lead Channel RV Pacing Threshold Date 2024-08-19 CV DEVICE CHECK Lead Channel Setting Pacing Amplitude 2.000 CV DEVICE CHECK Lead Channel Setting Pacing Pulse Width 0.4 CV DEVICE CHECK Dileep Setting Mode (NBG Code) VVI CV DEVICE CHECK Dileep Setting Lower Rate Limit 40 CV DEVICE CHECK RV HV Impedance 89 CV D EVICE CHECK Zone Setting Type Category VF CV DEVICE CHECK Therapies ATP During Charging, 25J, 35J x 5 CV DEVICE CHECK Zone Setting Status On CV DEVICE CHECK Zone ID 3 CV DEVICE CHECK Zone Setting Type Category FVT CV DEVICE CHECK Therapies All Rx Off CV DEVICE CHECK Zone Setting Status Off CV DEVICE CHECK Zone ID 4 CV DEVICE CHECK Zone Setting Type Category VT CV DEVICE CHECK Therapies All Rx Off CV DEVICE CHECK Zone Setting Status Off CV DEVICE CHECK Zone ID 5 CV DEVICE CHECK Date of Service 2024-08-19 CV DEVICE CHECK Anatomical Region Laterality Modality Device Interroga tion 08/19/2024 Impressions 08/24/2024 10:44 AM EDT Normal In-Office: No Events * Normal Device Function * Alerts or events: None * Battery: MOS, 18 months * Sensing, impedance and thresholds reviewed and tested * Presenting Rhythm: VS 80's * Heart Rate Histograms reviewed * Pacing and Detection Parameters were evaluated Heart Failure Diagnostic: Stable * Heart failure diagnostics assessed through the device * Status: Stable * No overt HF present Narrative Procedure Note Chester Weiner MD - 08/24/2024 IMPRESSION: Normal In-Office: No Events * Normal Device Function * Alerts or events: None * Battery: MOS, 18 months * Sensing, impedance and thresholds reviewed and tested * Presenting Rhythm: VS 80's * Heart Rate Histograms reviewed * Pacing and Detection Parameters were evaluated Heart Failure Diagnostic: Stable * Heart failure diagnostics assessed through the device * Status: Stable * No overt HF present us Order Referral Cardiovascular CV IMPLANTABLE CAR DIAC DEVICE PROCEDURES Final Result * Cardiac device check - Remote- MURJ (08/17/2024 7:19 PM EDT) Only the most recent of2 resultswithin the time period is included. Date Time Interrogation Session [id number] CV DEVICE CHECK Type Interrogation Session Remote CV DEVICE CHECK Implantable Pulse Generator Volunteer Services Supervisor MDT CV DEVICE CHECK Implantable Pulse Generator Type ICD CV DEVICE CHECK Implantable Pulse Generator Model Evera XT VR [id number] CV DEVICE CHECK Implantable Pulse Generator Serial Number [id number] CV DEVICE CHECK Implantable Pulse Generator Implant Date 20140301 CV DEVICE CHECK Battery Remaining Longevity 19.0 CV DEVICE CHECK Battery Voltage 2.900 CV D EVICE CHECK Battery TRANSIT MECHANIC Trigger 2.727 CV DEVICE CHECK Battery Status Middle of Service CV DEVICE CHECK Capacitor Charge Time 4.284 CV DEVICE CHECK Dileep Statistic RV Percent Paced 0.02 CV DEVICE CHECK Lead Channel Sensing Intrinsic Amplitude 7.125 CV DEVICE CHECK Lead Channel Setting Sensing Sensitivity 0.30 CV DEVICE CHECK Lead Channel Impedance Value 437 CV DEVICE CHECK Lead Channel Pacing Threshold Amplitude 0.875 CV DEVICE CHECK Lead Channel Pacing Threshold Pulse Width 0.4 CV DEVICE CHECK Lead Channel RV Pacing Threshold Date 2024-08-16 CV DEVICE CHECK Lead Channel Setting Pacing [...] 6 CV DEVICE CHECK Date of Service 2024-08-28 CV DEVICE CHECK Anatomical Region Laterality Modality Device Interroga tion 08/16/2024 4:38 AM EDT Impressions 08/17/2024 2:31 PM EDT Normal Remote: No Events * Normal Device Function * Alerts or events: None * Battery: OK, 1.58 yrs * Sensing, impedance and thresholds reviewed * Programmed parameters reviewed * Presenting rhythm reviewed * Heart Rate Histograms reviewed * No significant changes noted Heart Failure Diagnostic: Stable * Heart failure diagnostics assessed through the device * Status: Stable * No overt HF present Narrative Procedure Note Chester Weiner MD - 08/17/2024 IMPRESSION: Normal Remote: No Events * Normal Device Function * Alerts or events: None * Battery: OK, 1.58 yrs * Sensing, impedance and thresholds reviewed * Programmed parameters reviewed * Presenting rhythm reviewed * Heart Rate Histograms reviewed * No significant changes noted Heart Failure Diagnostic: Stable * Heart failure diagnostics assessed through the device * Status: Stable * No overt HF present Chester Weiner MD CV IMPLANTABLE CARDIAC DEVICE PROCEDURES Final Result * ECG 12 lead (07/14/2024 10:53 AM EST) Ventricular Rate ECG 75 BPM GEMUSE Atrial Rate 75 BPM GEMUSE P-R Interval 180 ms GEMUSE QRS Duration 158 ms GEMUSE Q-T Interval 422 ms GEMUSE QTc 471 ms GEMUSE P Wave Sheldon 50 degrees GEMUSE R Sheldon 99 degrees GEMUSE T Sheldon 47 degrees GEMUSE ECG Interpretation Normal sinus rhythm Right bundle branch block When compared with ECG of 09-JAN-2016 11:28, No significant change was found Confirmed by FRANCO CHAIDEZ ([id number]) on 07/19/2024 4:47:22 AM GEMUSE 07/14/2024 10:5 0 AM EST 07/19/2024 4:47 AM EDT us Sherrie MAIER ECG ORDERABLES Edited Result - Final GEMUSE * Annual BMP Blood Test (05/07/2023) Annual BMP Blood Test abstracted us Historical Provider HEALTH MAINTENANCE Final Result from Last 3 Months or Most Recently Relevant to Health Maintenance Insurance [employer] Advance Directives Documents on File Type Date Recorded Patient Edge Grinder Machine Expl anation Health Care Decision (hx) 01/21/2014 [...] (hx) 01/18/2014 AD SWARTZ DIRECTIVE Care Teams Film Waxer Relationship Specialty Start Date End Date Bella Concepcion MD [address] [place] [id number] PCP - General Internal Medicine 08/17/24
--- OUTSIDE RECORDS SUMMARY | 2024-09-20 08:09 | XMS_ITS ---
Author Organization Bella Concepcion MD Address [address] [place] [phone] Care Team Providers Care Realtime Court Reporter Name Role Phone Bella Concepcion Primary Care Provider REASON FOR VISIT labs Encounters Encounter Location Date Provider Diagnosis Bella Concepcion MD [address] [place] [phone] 01/22/2024 Bella Concepcion Plan Of Treatment Next Appt Details Provider Name:Bella Concepcion , 10/06/2024 03:30:00 PM, [address] [place] [address], [address], [phone], Progress Notes * Jas HERNANDEZDOB:[birth year] (63 yo M)Acc No.[id number]:01/22/2024 Patient:?Jas HERNANDEZ :1960???Age:63 Y???Sex:Male Address:[address] [place] [address], * true * Date:? Generated for Jvi skye/Asher/eTransmitting on:?09/20/2024 08:09 AM EDT
--- OUTSIDE RECORDS SUMMARY | 2024-09-20 08:09 | XMS_ITS ---
Author Organization Bella Concepcion MD Address [address] [place] [phone] Care Team Providers Care Literary Writer Name Role Phone Bella Concepcion Primary Care Provider REASON FOR VISIT AWV needed Encounters Encounter Location Date Provider Diagnosis Bella Concepcion MD [address] [place] [phone] 01/31/2024 Bella Concepcion Plan Of Treatment Next Appt Details Provider Name:Bella Concepcion , 10/06/2024 03:30:00 PM, [address] [place] [address], [phone], Progress Notes * Jas HERNANDEZDOB:[birth year] (63 yo M)Acc No.[id number]:01/31/2024 Patient:?Jas HERNANDEZ :1960???Age:63 Y???Sex:Male Address:[address] [place] [address], * true * Date:? Generated for Printi skye/Asher/eTransmitting on:?09/20/2024 08:09 AM EDT
--- OUTSIDE RECORDS SUMMARY | 2024-09-20 08:09 | XMS_ITS | Patient Health Record ---
Author Organization [facility] Address [address] [phone] Care Team Providers Care Dye Padder Operator Name Role Phone Bella Concepcion Primary Care Provider [phone] Nikole Hare Unavailable [phone] Allergies No Known Allergies Results Component Value Reference Range Notes PDF Report Reviewed date:01/22/2024 05:42:53 PM Interpretation: Performing Lab:[facility], [address] [place] [address], [place], Phone - [phone], Director - Esther Notes/Report: Test(s) 754948-Abveras microti IgG was developed and its performance characteristics determined by [facility]. It has not been cleared or approved by the Food and Drug Administration. CBC Reviewed date:03/10/2024 08:23:33 AM Interpretation: Performing Lab: Notes/Report: Original Ordering Provider: JUAN BARONE [facility] [employer], a member of [address] [address] Hardwood Floor Installer - Omayra Cleaning MD WBC 10.0 4.8-10.8 [...] Interpretation: Performing Lab: Notes/Report: Original Ordering Provider: JUNA HUNTER PROSTATIC SPECIFIC ANTIGEN 0.8 0.0-4.0 ng/mL The Siemens Advia Centaur Chemiluminescent Immunoassay is used. Results obtained with [...] 72 hours. TESTOSTERONE 235 229-902 ng/dL Note [employer], a member of [address] [address] Hardwood Floor Installer - Omayra Cleaning MD ALBUMIN 4.4 3.2-5.0 G/dL SEX HORMONE BINDING GLOBULIN 20.3 FREE TESTOSTERONE 5.8 4.6-22.4 ng/dL BIOAVAILABLE TESTOSTERONE 138.0 110.0-575.0 ng/ dL CBC With Differential/Platel [id number] Reviewed date:01/22/2024 05:42:52 PM Interpretation: Performing Lab:[facility], [address] [place] [address], [place], Phone - [phone], Director - Esther Notes/Report: Test(s) 429294-Axbiycj microti IgG was developed and its performance characteristics determined by [employer]. It has not been cleared or approved [...] Immature Grans (Abs) 0.0 0.0-0.1 x10E3/uL Sedimentation Rate-[facility] [id number] Reviewed date:01/22/2024 05:42:52 PM Interpretation: Performing Lab:[facility] [address], Phone - [phone], Director - [facility] Notes/Report: Test(s) 589040-Kfatnkp microti IgG was developed and its performance characteristics determined by [facility]. It has not been cleared or approved by the Food and Drug Administration. [facility]-30 mm/hr C-Reactive Protein, Quant-00 6627 Reviewed date:01/22/2024 05:42:52 PM Interpretation: Performing Lab:[facility] [address], Phone - [phone], Director - [facility] Notes/Report: Test(s) 426390-Ditpymh microti IgG was developed and its performance characteristics determined by [facility]. It has not been cleared or approved by the Food and Drug Administration. C-Reactive Protein, Quant 2 0-10 mg/L Tick-borne Disease Ab Profil [id number] Reviewed date:01/22/2024 05:42:52 PM Interpretation: Performing Lab:[facility] [address], Phone - [phone], Director - [facility] Notes/Report: Test(s) 421712-Tagfivb microti IgG was developed and its performance characteristics determined by [facility]. It has not been cleared or approved [...] diagnosis of babesiosis, anaplasmosis, and/or ehrlichiosis, respectively. Reason For Referral No Information Medications Medication [...] Influenza-Afluria (IIV4) IM Intramuscular 03/14/2017 Admin istered Lgowhgopd-2481-25 Afluria-Single IM Intramuscular 03/18/2018 Administered Influenza, seasonal, injectable, preservative free, 4 yrs and above IM Intramuscular 01/18/2016 Administered QWYEU-77-Dstbjos Vaccine Unknown 06/04/2020 Administere d OXTQB-10-Cnjlwei Vaccine Unknown 07/05/2020 Administere d *Influenza-Medicare-AS IM [...] Status Risk Notes Problem Vitamin D deficiency (98929933) Vitamin D deficiency, unspecified (E55.9) Active confirmed Problem Mixed hyperlipidemia (512784209) Mixed hyperlipidemia (E78.2) Active confirmed Problem Tobacco user (173877883) Nicotine dependence, cigarettes, in remission (F17.211) Active confirmed Problem Hypertensive heart AND renal disease (46031518) Hypertensive heart and chronic 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 heart failure, with stage 1 through stage 4 chronic kidney disease, or unspecified chronic kidney disease (I13.10) Active confirmed Problem Cardiomyopathy (54118232) Cardiomyopathy, unspecified (I42.9) Active confirmed Problem Ventricular premature depolarization (537436659) Ventricular premature depolarization (I49.3) Active confirmed Problem Chronic systolic heart failure (716870860) Chronic systolic (congestive) heart failure (I50.22) Active confirmed Problem Impingement syndrome of shoulder region (079985774) Impingement syndrome of right shoulder (M75.41) Active confirmed Problem Chronic kidney disease stage 2 (970316928) Chronic kidney disease, stage 2 (mild) (N18.2) Active confirmed Problem Paresthesia (finding) (46250893) Paresthesia of skin (R20.2) Active confirmed Problem Automatic implantable cardiac defibrillator in situ (454337061) Presence of automatic (implantable) cardiac defibrillator (Z95.810) Active confirmed Problem Benign prostatic hypertrophy without outflow obstruction (725910677) Benign prostatic hyperplasia without lower urinary tract symptoms (N40.0) Active confirmed Problem Body mass index 35.00 to 39.99 (996514587094603) Body mass index [BMI] 37.0-37.9, adult (Z68.37) Active confirmed Problem Ventricular tachycardia (disorder) (89512284) Ventricular tachycardia, unspecified (I47.20) Active confirmed Problem Testicular hypofunction (598367811) Testicular hypofunction (E29.1) Inactive confirmed Problem Tinnitus (34100902) Tinnitus, unspecified ear (H93.19) Inactive confirmed Problem Chronic kidney disease stage 3 (509482321) Chronic kidney disease, stage 3 (moderate) (N18.3) Problem resolved confirmed Vital Signs Heart Rate 83 /min 01/19/2024 Oximetry 97 % 01/19/2024 Height 5 ft 7 in in 01/19/2024 Weight 223 lbs 01/19/2024 BMI 34.92 kg/m2 01/19/2024 Encounters Encounter Location Date Provider Diagnosis Bella Concepcion MD [address] [phone] 01/22/2024 Bella Concepcion MD [address] [id number] 01/31/2024 Bella Concepcion MD [address] [id number] 09/17/2024 Bella Concepcion MD [address] [phone] 01/19/2024 Nikole Hare Pain in right elbow [...] is agreeable to be seen at the [facility] walk-in clinic today as he would benefit [...] Bladder 10/05/2019 Next Appt Details Provider Name:Bella Jamey , 10/06/2024 03:30:00 PM, [address] [place] [address], [facility], [place], [place], [phone], Insurance Providers Payer Name Payer Address Payer Phone Subscriber Number Group Number Insured Name Patient Relationship to Insured Coverage Start Date Coverage End Date [employer] [address] [place] [address] [id number] Jas Saravia Self - patient is the [...]
--- OUTSIDE RECORDS SUMMARY | 2024-09-20 08:09 | XMS_ITS ---
Author Organization Bella Concepcion MD Address [address] [place] [phone] Care Team Providers Care Laborer Wharf Name Role Phone eBlla Concepcion Primary Care Provider [phone] REASON FOR VISIT stye Encounters Encounter Location Date Provider Diagnosis Bella Concepcion MD [address] [place] [phone] 09/17/2024 Bella Concepcion Plan Of Treatment Next Appt Details Provider Name:Bella Concepcion , 10/06/2024 03:30:00 PM, [address] [place] [address], [address], [phone], Progress Notes * Jas SARAVIADOB:[birth year] (63 yo M)Acc No.[id number]:09/17/2024 Patient:?Jas SARAVIA :1960???Age:63 Y???Sex:Male Address:[address] [place] [address], Subjective: * Chief Complaints: * ???Stye * Medical History:? * Surgical History:? * Hospitalization/Major Diagno stic Procedure:? * Medications:? Objective: * Vitals:? Past Vitals:* 01/19/2024 HR:83/min, Wt:223lbs, BMI:34 .92Index, Ht:5 ft 7 in, Oxygen sat %:97% * 05/20/2023 Temp:95.3F, HR:84/min, BP: S itting Right Arm: 108/54 mm Hg,Standing Right Arm: 108/58mm Hg, Wt:233.00lbs, BMI:36.49Index, Ht:5 ft 7 in, Oxygen sat %:98% * 03/10/2023 Temp:97.6F, HR:83/min, BP:Si tting Right Arm:94/50mm Hg, Wt:233lbs, BMI:36.49Index, Ht:5 ft 7 in, Oxygen sat %:96% * Physical Examination:? Assessment: Plan: * Treatment: * Procedure Codes:? * true * Date:? Generated for Bernardo cheung/Asher/Sammy on:?09/20/2024 08:09 AM EDT
== END 2024-09-20 08:06 | disposition home or self-care (01) ==
LOC: HO.BBR 08:05
PROVIDERS: PCP Internal Medicine; Visit Provider Urology
DX: D45 Polycythemia vera (principal)
CPT/HCPCS: 85014; 85018; 99195

== ENCOUNTER 2024-11-18 12:00 | Outpatient (REF) | payer OTHER, SELFPAY ==
--- OUTSIDE RECORDS SUMMARY | 2024-11-18 12:26 | XMS_ITS | Patient Health Record ---
Author Organization Bella Concepcion MD Address [address] [id number] Care Team Providers Care Extruder Operator Multiple Name Role Phone Bella Concepcion Primary Care Provider Nikole Hare Unavailable [phone] Allergies No Known Allergies Results Component Value Reference Range Notes CBC Reviewed date:03/10/2024 08:23:33 AM Interpretation: Performing Lab: Notes/Report: Original Ordering Provider: JUAN HUNTER [employer], a member of [address] [address] [place] [employer] - Omayra Cleaning MD WBC 10.0 4.8-10.8 [...] 72 hours. TESTOSTERONE 235 229-902 ng/dL Note [employer], a member of [address] [address] [place] [employer] - Omayra Cleaning MD ALBUMIN 4.4 3.2-5.0 G/dL SEX HORMONE BINDING GLOBULIN 20.3 FREE TESTOSTERONE 5.8 4.6-22.4 ng/dL BIOAVAILABLE TESTOSTERONE 138.0 110.0-575.0 ng/ dL CBC With Differential/Platel et-277303 Reviewed date:01/22/2024 05:42:52 PM Interpretation: Performing Lab:[facility] [place], [address] [place] [address] Avenue, [place], Phone - [phone], Director - Esther Notes/Report: Test(s) 943334-Hmoxixv microti IgG was developed and its performance characteristics determined by [employer]. It has not been cleared or approved [...] Immature Grans (Abs) 0.0 0.0-0.1 x10E3/uL Sedimentation Rate-[place] n-060752 Reviewed date:01/22/2024 05:42:52 PM Interpretation: Performing Lab:[facility] [address], Phone - [phone], Director - [facility] Notes/Report: Test(s) 096533-Jofemoc microti IgG was developed and its performance characteristics determined by [facility]. It has not been cleared or approved by the Food and Drug Administration. [facility] 0-30 mm/hr C-Reactive Protein, Quant-00 6627 Reviewed date:01/22/2024 05:42:52 PM Interpretation: Performing Lab:[facility] [address], Phone - [phone], Director - [facility] Notes/Report: Test(s) 658805-Hyvecwj microti IgG was developed and its performance characteristics determined by [facility]. It has not been cleared or approved by the Food and Drug Administration. C-Reactive Protein, Quant 2 0-10 mg/L Tick-borne Disease Ab Profil e-[id number] Reviewed date:01/22/2024 05:42:52 PM Interpretation: Performing Lab:[facility] [address], Phone - [phone], Director - [facility] Notes/Report: Test(s) 767481-Klcgdbn microti IgG was developed and its performance [...] Report Reviewed date:01/22/2024 05:42:53 PM Interpretation: Performing Lab:[facility], Phone - [phone], Director - Esther Notes/Report: Test(s) 227834-Gzkyqyg microti IgG was developed and its performance characteristics determined by [employer]. It has not been cleared or approved by the Food and Drug Administration. Hemoglobin E2o-064063 (Not y et reviewed by provider) Interpretation: Performing Lab:[facility], Phone - [phone], Director - Esther Notes/Report: Hemoglobin A1c 5.4 4.8-5.6 % . Prediabetes: 5.7 - 6.4 Diabetes: >6.4 Glycemic control for adults with diabetes: <7.0 Magnesium-588626 (Not yet re viewed by provider) Interpretation: Performing Lab:[facility] [address], Phone - [phone], Director Abby Santana Notes/Report: Magnesium 2.4 1.6-2.3 mg/dL Urinalysis, Complete-546926 (Not yet reviewed by provider) Interpretation: Performing Lab:[facility] [address], [place], Phone - [phone], Director - Esther Notes/Report: Specific [place] 1.026 1.005-1.030 pH 5.5 5.0-7.5 Urine-Color Yellow Yellow Appearance Clear Clear WBC Esterase Negative Negative Protein Negative Negative/Trace Glucose 3+ Negative Ketones Negative Negative Occult Blood Negative Negative Bilirubin Negative Negative Urobilinogen,Semi-Qn 0.2 0.2-1.0 mg/dL Nitrite, Urine Negative Negative Microscopic Examination Micr oscopic follows if indicated. Microscopic Examination See below: Micr oscopic was indicated and was performed. WBC None seen 0 - 5 /hpf RBC None seen 0 - 2 /hpf Epithelial Cells (non renal) None seen 0 - 10 /hpf Casts None seen None seen /lpf Bacteria None seen None seen/Few CBC With Differential/Platel et-291887 (Not yet reviewed by provider) Interpretation: Performing Lab:[facility] [place], [address] [facility], [place], Phone - [phone], Director - MDJodry Notes/Report: WBC 8.7 3.4-10.8 x10E3/uL RBC 6.13 4.14-5.80 x10E6/uL Hemoglobin 17.8 13.0-17.7 g/dL Hematocrit 55.3 37.5-51.0 % MCV 90 79-97 fL MCH 29.0 26.6-33.0 pg MCHC 32.2 31.5-35.7 g/dL RDW 14.7 11.6-15.4 % Platelets 208 150-450 x10E3/uL Neutrophils 70 Not Estab. % Lymphs 23 Not Estab. % Monocytes 6 Not Estab. % Eos 1 Not Estab. % Basos 0 Not Estab. % Neutrophils (Absolute) 6.1 1.4-7.0 x10E3/uL Lymphs (Absolute) 2.0 0.7-3.1 x10E3/uL Monocytes(Absolute) 0.6 0.1-0.9 x10E3/uL Eos (Absolute) 0.0 0.0-0.4 x10E3/uL Baso (Absolute) 0.0 0.0-0.2 x10E3/uL Immature Granulocytes 0 Not Estab. % Immature Grans (Abs) 0.0 0.0-0.1 x10E3/uL Prostate-Specific Ag-573114 (Not yet reviewed by provider) Interpretation: Performing Lab:[facility] [place], [address], [place], Phone - [phone], Director - NMJodry Notes/Report: Prostate Specific Ag 1.1 0.0-4.0 ng/mL Simran ECLIA methodology. . According to the [place] [employer], Serum PSA should decrease and remain at undetectable levels after radical prostatectomy. The AUA defines biochemical recurrence as an initial PSA value 0.2 ng/mL or greater followed by a subsequent confirmatory PSA value 0.2 ng/mL or greater. Values obtained with different assay methods or kits cannot be used interchangeably. Results cannot be interpreted as absolute evidence of the presence or absence of malignant disease. Vitamin D, 44-Ohxtvpw-977309 (Not yet reviewed by provider) Interpretation: Performing Lab:[facility] [place], [address] [place] [address], Phone - [phone], Director - [facility] Notes/Report: Vitamin D, 25-Hydroxy 34.1 30.0-100.0 ng/mL Vitamin D deficiency has been defined by the [place] of Medicine and an Endocrine Society practice guideline as a level of serum 25-OH vitamin D less than 20 ng/mL (1,2). The Endocrine Society went on to further define vitamin D insufficiency as a level between 21 and 29 ng/mL (2). 1. IOM ([place] of Medicine). 2010. Dietary reference intakes for calcium and D. [place]: The National Academies Press. 2. Jeanne MF, Tristen NC, Sandy BROCK, et al. Evaluation, treatment, and prevention of vitamin D deficiency: an Endocrine Society clinical practice guideline. JCEM. 2010; 96(7):1911-30. B-Type Natriuretic Peptide-1 16129 (Not yet reviewed by provider) Interpretation: Performing Lab:[facility] [place], [address] [place] [address], Phone - [phone], Director - [facility] Notes/Report: B-Type Natriuretic Peptide 10.6 0.0-100.0 pg/m L Siemens ADVIA Centaur XP methodology Comp. Metabolic Panel (14)-3 63649 (Not yet reviewed by provider) Interpretation: Performing Lab:[facility] [place], [address] [place] [address], [place], Phone - [phone], [facility] Notes/Report: Glucose 92 70-99 mg/dL BUN 21 8-27 mg/dL Creatinine 1.35 0.76-1.27 mg/dL eGFR 60 >59 mL/min/1.73 BUN/Creatinine Ratio 16 10-24 Sodium 140 134-144 mmol/L Potassium 5.0 3.5-5.2 mmol/L Chloride 103 96-106 mmol/L Carbon Dioxide, Total 19 20-29 mmol/L Calcium 10.1 8.6-10.2 mg/dL Protein, Total 7.5 6.0-8.5 g/dL Albumin 4.8 3.9-4.9 g/dL Globulin, Total 2.7 1.5-4.5 g/dL Bilirubin, Total 0.6 0.0-1.2 mg/dL Alkaline Phosphatase 56 44-121 IU/L AST (SGOT) 22 0-40 IU/L ALT (SGPT) 18 0-44 IU/L LP+Non-HDL Cholesterol-16270 5 (Not yet reviewed by provider) Interpretation: Performing Lab:[facility] [place], [address] [facility], [place], Phone - [phone], Director - [facility] Notes/Report: Cholesterol, Total 196 100-199 mg/dL Triglycerides 178 0-149 mg/dL HDL Cholesterol 48 >39 mg/dL VLDL Cholesterol Colin 31 5-40 mg/dL LDL Chol Calc (NIH) 117 0-99 mg/dL Non-HDL Cholesterol 148 0-129 mg/dL HCV Antibody-230166 (Not yet reviewed by provider) Interpretation: Performing Lab:[facility] [place], [address] [facility], [place], Phone - [phone], Director - [facility] Notes/Report: Hep C Virus Ab Non Reactive Non Reactive HCV antibody alone does not differentiate between previously resolved infection and active infection. Equivocal and Reactive HCV antibody results should be followed up with an HCV RNA test to support the diagnosis of active HCV infection. Reason For Referral Reason faxed Diagnosis 1 Personal history of adenomatous and serrated colon polyps (Z86.0101) Referral Organization Bella DIAS Referring Provider First Name Bella Referring Provider Last Name Jamey Referring Provider Speciality Internal M edicine Referred Provider Marco Antonio Osuna Referred Provider Specialty Gastroentero logy General Notes Khadijah ERWIN 12/2024 05:17:38 PM >faxed Referral Priority Routine Medications Medication SIG (Take, Route, Frequency, Duration) Notes Start Date End Date Status Pravastatin Sodium 40 MG TAKE 1 TABLET B Y MOUTH EVERY DAY; Duration: 90 Active Finasteride 5 MG TAKE 1 TABLET BY MOUTH EVERY DAY Oral; Duration: 90 Active Entresto 97-103 MG TAKE 1 TABLET BY MOUTH TWICE A DAY; Duration: 90 Active Carvedilol 3.125 MG 1 tablet with food Oral Twice a day; Duration: 30 Days Active Farxiga 10 MG TAKE 1 TABLET BY MOUTH EVERY DAY; Duration: 90 days Brand name Only Active Probiotic - as directed Orally Active Centrum Silver - as directed Orally Active Spironolactone 25 MG 1 tablet Orally; Duration: 30 day(s) Active Immunizations Vaccine Route Administration Date Status Comme nts Td (adult) preservative free Unknown 06/21/2004 Administered Td (adult) preservative free Unknown 05/12/2012 Administered RSV Unknown 01/23/2023 Administered Pneumococcal polysaccharide PPV23 Unknown 05/03/2008 Administered Influenza-Afluria (IIV4) IM Intramuscular 03/14/2017 Admin istered Ayikybrco-8457-57 Afluria-Single IM Intramuscular 03/18/2018 Administered Influenza, seasonal, injectable, preservative free, 4 yrs and above IM Intramuscular 01/18/2016 Administered DUXZN-28-Apzvuwn Vaccine Unknown 06/04/2020 Administere d TEPTR-66-Vxhhwsk Vaccine Unknown 07/05/2020 Administere d COVID-19 Moderna BiValent Booster Unknown 02/16/2022 Administered COVID Spikevax Moderna Unknown 02/13/2024 Administered COVID COMIRNATY Pfizer Unknown 02/07/2023 Administered *Tdap Unknown 02/13/2024 Administered *PREVNAR 20 IM Intramuscular 11/16/2024 Administered *Influenza-Medicare-AS IM Intramuscular 03/13/2021 Adminis tered Social History Tobacco Use: Social History Observation Description Date Details (start date - stop date) Former Smoker NA - NA AUDIT-C (Standard) Question Answer Notes Did you have a drink containing alcohol in the p ast year? No Points 0 Interpretation Negative Tobacco Control (Standard) Question Answer Notes Tobacco use: Former smoker How long has it been since you last smoked? 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) Hypertensive heart and chronic 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 heart failure, with stage 1 through stage 4 chronic kidney disease, or unspecified chronic kidney disease (I13.10) Active confirmed Problem Cardiomyopathy (94377229) Cardiomyopathy, unspecified (I42.9) Active confirmed Problem Ventricular premature depolarization (467663503) Ventricular premature depolarization (I49.3) Active confirmed Problem Chronic systolic heart failure (644372535) Chronic systolic (congestive) heart failure (I50.22) Active confirmed Problem Impingement syndrome of shoulder region (647093718) Impingement syndrome of right shoulder (M75.41) Active confirmed Problem Chronic kidney disease stage 2 (516492724) Chronic kidney disease, stage 2 (mild) (N18.2) Active confirmed Problem Paresthesia (finding) (38465983) Paresthesia of skin (R20.2) Active confirmed Problem Automatic implantable cardiac defibrillator in situ (814896402) Presence of automatic (implantable) cardiac defibrillator (Z95.810) Active confirmed Problem Benign prostatic hypertrophy without outflow obstruction (768926554) Benign prostatic hyperplasia without lower urinary tract symptoms (N40.0) Active confirmed Problem Body mass index 35.00 to 39.99 (480284773729723) Body mass index [BMI] 37.0-37.9, adult (Z68.37) Active confirmed Problem Ventricular tachycardia (disorder) (03806830) Ventricular tachycardia, unspecified (I47.20) Active confirmed Problem Personal history of adenomatous and serrated colon polyps (Z86.0101) Active confirmed Problem Testicular hypofunction (406268883) Testicular hypofunction (E29.1) Inactive confirmed Problem Tinnitus (05593079) Tinnitus, unspecified ear (H93.19) Inactive confirmed Problem Chronic kidney disease stage 3 (625474699) Chronic kidney disease, stage 3 (moderate) (N18.3) Problem resolved confirmed Vital Signs Heart Rate 86 /min 11/16/2024 Temperature 97.1 degrees Fahrenheit 11/16/2024 Blood pressure diastolic 54 mm Hg 11/16/2024 Oximetry 95 % 11/16/2024 Height 5 ft 7 in in 11/16/2024 Blood pressure systolic 106 mm Hg 11/16/2024 Weight 223 lbs 11/16/2024 BMI 34.92 kg/m2 11/16/2024 Encounters Encounter Location Date Provider Diagnosis Bella Concepcion MD [address] [id number] 01/22/2024 Bella Concepcion MD [address] [id number] 01/31/2024 Bella Concepcion MD [address] [id number] 09/17/2024 Bella Concepcion MD [address] [id number] 10/06/2024 Bella Concepcion MD [address] [id number] 10/06/2024 Bella Concepcion MD [address] [id number] 11/16/2024 Bella Concepcion Encounter for genera l adult medical examination without abnormal findings Z00.00 ; Hypertensive heart and chronic 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 heart failure, with stage 1 through stage 4 chronic kidney disease, or unspecified chronic kidney disease I13.10 ; Cardiomyopathy, unspecified I42.9 ; Chronic systolic (congestive) heart failure I50.22 ; Ventricular tachycardia, unspecified I47.20 ; Presence of automatic (implantable) cardiac defibrillator Z95.810 ; Chronic kidney disease, stage 2 (mild) N18.2 ; Other obesity due to excess calories E66.09 ; Body mass index [BMI] 37.0-37.9, adult Z68.37 ; Mixed hyperlipidemia E78.2 ; Personal history of adenomatous and serrated colon polyps Z86.0101 ; Nicotine dependence, cigarettes, in remission F17.211 ; Vitamin D deficiency, unspecified E55.9 ; Encounter for immunization Z23 ; Encounter for screening for malignant neoplasm of colon Z12.11 ; Encounter for screening for malignant neoplasm of prostate Z12.5 ; Encounter for screening for cardiovascular disorders Z13.6 ; Encounter for antibody response examination Z01.84 ; Encounter for screening for other viral diseases Z11.59 and Glycosuria R81 Bella Concepcion MD [address] [id number] 01/19/2024 Nikole Hare Pain in right elbow [...] pain that has been present for months. 11/16/2024 Hypertensive heart and chronic 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 heart failure, with stage 1 through stage 4 chronic kidney disease, or unspecified chronic kidney disease (ICD-10 - I13.10) Stable at present. Continue current medical therapy. 11/16/2024 Encounter for general adult medical examination without abnormal findings (ICD-10 - Z00.00) General healthcare up-to-date. Check routine labs 11/16/2024 Cardiomyopathy, unspecified (ICD-10 - I42.9) Stable with last echocardiogram reported to have an ejection fraction of 30% 01/19/2024 Trigger finger, right ring finger (ICD-10 - M65.341) Spent much time discussing patient's right ring finger pain and suspected trigger finger. Patient is agreeable to be seen at the [facility] walk-in clinic today as he would benefit from an injection to release tension in his ring finger. Discussed with patient the importance of proper management of a trigger finger to ensure that it does not become contracted where he will require surgical intervention to fix the limited range of motion 11/16/2024 Chronic systolic (congestive) heart failure (ICD-10 - I50.22) Symptomatically stable. Can check biochemical markers and continue current medical therapy 11/16/2024 Ventricular tachycardia, unspecified (ICD-10 - I47.20) Stable without any symptomatic recurrence 11/16/2024 Presence of automatic (implantable) cardiac defibrillator (ICD-10 - Z95.810) Stable without any firings and continued follow-up with device clinic on a periodic basis 11/16/2024 Chronic kidney disease, stage 2 (mild) (ICD-10 - N18.2) His GFR had been stable in the remote past. Can recheck status 11/16/2024 Other obesity due to excess calories (ICD-10 - E66.09) His weight has improved. He is trying diet and exercise with a goal of 1 pound weight loss per week. Can continue same. 11/16/2024 Body mass index [BMI] 37.0-37.9, adult (ICD-10 - Z68.37) His BMI had been elevated and his improving. Continue work on lifestyle modification to improve BMI with a goal less than 30 11/16/2024 Mixed hyperlipidemia (ICD-10 - E78.2) Fair control on remote labs. Can recheck status to reassess cardiovascular risk 11/16/2024 Personal history of adenomatous and serrated colon polyps (ICD-10 - Z86.0101) Due for repeat colonoscopy 11/16/2024 Nicotine dependence, cigarettes, in remission (ICD-10 - F17.211) Remains in remission 11/16/2024 Vitamin D deficiency, unspecified (ICD-10 - E55.9) Check level to verify that there is no deficiency 11/16/2024 Encounter for immunization (ICD-10 - Z23) Vaccines up to date 11/16/2024 Encounter for screening for malignant neoplasm of colon (ICD-10 - Z12.11) Due for repeat colon cancer screening 11/16/2024 Encounter for screening for malignant neoplasm of prostate (ICD-10 - Z12.5) Can check PSA has prostate cancer screening realizing the limitation of this test as a screening test 11/16/2024 Encounter for screening for cardiovascular disorders (ICD-10 - Z13.6) Blood pressure is stable. Can check for comorbidity of hyperlipidemia and hyperglycemia to further assess risk. 11/16/2024 Encounter for antibody response examination (ICD-10 - Z01.84) Titers have been checked in the past and there is immunity to rubeola 11/16/2024 Encounter for screening for other viral diseases (ICD-10 - Z11.59) Can screen for hepatitis C as per general recommendation 11/16/2024 Glycosuria (ICD-10 - R81) He was at the urologist and had glucose in his urine. He had a fingerstick glucose that was 88. Can check labs to verify that there is no diabetes. Given glucosuria he most likely has significant hyperglycemia. He has been lost to follow-up and therefore has not had an comprehensive evaluation for quite some time. He says he will be more faithful to his medical care. 11/16/2024 Other This note was created with voice dictation recognition software and may contain errors of grammar and syntax. Also labs were reviewed with patient. Plan Of Treatment Pending Test Test Name Order Date 25OH VITAMIN D 06/27/2022 COMPLETE CBC WITH DIFF 06/27/2022 COMPLETE URINALYSIS 06/27/2022 COMPREHENSIVE METABOLIC PANEL 06/27/2022 LIPID PANEL W REFLEX TO DLDL 06/27/2022 PSA 06/27/2022 VITAMIN D, 25-HYDROXY 08/14/2020 VITAMIN D, 25-HYDROXY 01/24/2020 US Bladder 10/05/2019 Hemoglobin G7m-343485 11/16/2024 Magnesium-984590 11/16/2024 Urinalysis, Complete-645399 11/16/2024 CBC With Differential/Platelet-638194 Prostate-Specific Ag-916125 11/16/2024 Vitamin D, 98-Hbeocpm-839903 11/16/2024 B-Type Natriuretic Peptide-988665 2024 Comp. Metabolic Panel ([id number] 2024 LP+Non-HDL Cholesterol-732619 11/16/2024 HCV Antibody-210954 11/16/2024 Next Appt Details Provider Name:Joaquinmaday Jamey , 05/25/2025 03:15:00 PM, [address] [place] [address], [phone], Provider Name:Joaquinmaday Jamey , 11/23/2025 04:00:00 PM, [address] [place] [address], [phone], Insurance Providers Payer Name Payer Address Payer Phone Subscriber Number Group Number Insured Name Patient Relationship to Insured Coverage Start Date Coverage End Date [employer] [address] [place] [address] [id number] Jas Saravia Self - patient is the [...]
--- OUTSIDE RECORDS SUMMARY | 2024-11-18 12:27 | XMS_ITS | Clinical Summary ---
Author Organization [address] [place] [address] Address [address] [place] [address] Phone Care Team Providers Care Package Winder Name Role Phone Bella Concepcion MD Primary Care Provider [phone] Allergies No known active allergies Medications aspirin [...] 360 DAYS. 180 tablet 1 07/01/2024 Active pravastatin (PRAVACHOL) 40 mg tablet Take 1 tablet (40 mg total) by mouth at bedtime. 90 each 2 07/14/2024 Active Farxiga 10 mg tablet Take 1 tablet (10 mg total) by mouth 1 (one) time each day. 90 tablet 1 07/22/2024 Active Active Problems Problem Noted Date Diagnosed Date PVC (premature ventricular contraction) 05/07/20 ICD (implantable cardioverter-defibrillator) in place 08/19/2022 Overview (04/22/2024): Last Assessment & Plan: Normally functioning ICD. No recent episodes of ventricular tachycardia. 3 years of battery longevity remaining. Postural dizziness with presyncope 04/09/2022 Cardiomyopathy ([facility] V24, [facility] V28) 2020 JENAE (obstructive sleep apnea) 04/26/2021 Chest pain 01/08/2021 Overview (04/22/2024): Chest discomfort Chest pain Chronic systolic heart failure ([facility] V24, [facility] V28) 01/08/2021 Overview (04/22/2024): Chronic systolic heart [...] prevention ICD in place. 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 Encounters Date Type Department Care Team Description 10/29/2024 3:00 PM EDT Ancillary Procedure [facility] [address] [place] [address] Encounter for adjustment or management of cardiac device 08/19/2024 4:00 PM EDT Ancillary Procedure [facility] [address] [place] [address] Encounter for adjustment or management of cardiac device from Last 3 Months Immunizations Name Administration [...] Description 03/15/2025 9:55 AM EST Office Visit [facility] [address] [facility] [address] [place] [address] Chester Weiner MD [address] [facility] [address] [place] [address] 08/22/2025 4:30 PM EDT Ancillary Procedure [facility] [address] [facility] 154 [place] [address] Health Maintenance Due Date Last Done Comments Pneumococcal Vaccine: 50+ Years (1 of 2 - PCV) 1981 Pneumococcal Vaccine: Pediatrics (0 to 5 Years) and At-Risk Patients (6 to 49 Years) (1 of 2 - PCV) 1981 Zoster Vaccines (1 of 2) 2012 Cholesterol Screening (Lipid Panel) 04/20/2022 Colorectal Cancer Screening: Colonoscopy 04/20/2022 Depression Screening 04/20/2022 HIV Screening 04/20/2022 Hepatitis C Screening 04/20/2022 Social Influencers of Health Screening 04/20/2022 Influenza Vaccine (#1) 2025 , 01/23/2023, 03/13/2021 Hypertension/CHF/CAD Annual BMP Blood Test 11/04/2025 11/04/2024, 05/07/2023 DTaP,Tdap,and Td Vaccines (3 - Td or Tdap) 02/12/2034 02/13/2024, 05/23/2012 RSV Immunization Adult Patients Completed 01/23/2023 COVID-19 Vaccine Completed 02/13/2024, , 02/16/2022, Additional history exists HIB Vaccines Aged Out No longer eligi [...] this topic Medical Devices Implanted Type Area Toy Assembly Supervisor Device Identifier Shelf Expiration Date Model / Serial / Lot Medt-Card Evera Xt Vr [id number] Implanted: by Chester Weiner MD (Quantity not on file) Cardiac ICD Left: Chest [employer] - CARDIAC RHYTH-CRDM EVERA XT VR [id number] / [id number] / Procedures Procedure Name Priority Date/Time Associated Diagnosis Comments BASIC METABOLIC PANEL Routine 11/04/2024 11:38 AM EDT Chronic systolic heart failure (CMS/HCC V24, CMS/HCC V28) CARDIAC DEVICE CHECK- IN CL[facility]IC- [facility] Routine 10/29/2024 3:12 PM EDT Encounter for adjustment or management of cardiac device CARDIAC DEVICE CHECK- IN CLINIC- [facility] Routine 08/19/2024 4:07 PM EDT Encounter for adjustment or management of cardiac device from Last 3 Months Results * Basic metabolic panel (11/04/2024 11:38 AM EDT) Glucose 98 70 - 99 mg/dL [facility] Blood Urea Nitrogen (BUN) 17 8 - 27 mg/dL [facility] Creatinine 1.20 0.76 - 1.27 mg/dL [facility] 1 eGFR 69 >59 mL/min/1.7 3 [facility] BUN/Creatinine Ratio 14 10 - 24 [facility] 1 Sodium 140 134 - 144 mmol/L [facility] Potassium 4.9 3.5 - 5.2 mmol/L [facility] 1 Chloride 103 96 - 106 mmol/L [facility] 1 Carbon Dioxide 23 20 - 29 mmol/L [facility] 1 Calcium 9.9 8.6 - 10.2 mg/dL [facility] 1 Blood Venous blood specimen / Unknown 11/04/2024 11:38 AM EDT 11/04/2024 Narrative [facility] 1 - 11/04/2024 11:06 PM EDT Performed at: 01 - [facility] [address] [id number] [employer] Ref[employer] Laborer: Sierra Faith MD, Phone: [phone] us Sherrie MAIER LAB BLOOD ORDERABLES Final Resul t [facility] * CARDIAC DEVICE CHECK- IN CLINIC- [facility] (10/29/2024 3:12 PM EDT) Only the most recent of2 resultswithin the time period is included. Date Time Interrogation Session [id number] CV DEVICE CHECK Implantable Pulse Generator Toy Assembly Supervisor MDT CV DEVICE CHECK Implantable Pulse Generator Type ICD CV DEVICE CHECK Implantable Pulse Generator Model Evera XT VR [id number] CV DEVICE CHECK Implantable Pulse Generator Serial Number [id number] CV DEVICE CHECK Implantable Pulse Generator Implant Date [id number] CV DEVICE CHECK Battery Remaining Longevity 16.0 CV DEVICE CHECK Battery Status Unknown CV DE VICE CHECK Dileep Statistic RV Percent Paced 0.10 CV DEVICE CHECK Lead Channel Sensing Intrinsic Amplitude 6.900 CV DEVICE CHECK Lead Channel Setting Sensing Sensitivity 0.30 CV DEVICE CHECK Lead Channel Impedance Value 494 CV DEVICE CHECK Lead Channel Pacing Threshold Amplitude 0.750 CV DEVICE CHECK Lead Channel Pacing Threshold Pulse Width 0.4 CV DEVICE CHECK Lead Channel RV Pacing Threshold Date 2024-10-29 CV DEVICE CHECK Lead Channel Setting Pacing Amplitude 2.000 CV DEVICE CHECK Lead Channel Setting Pacing Pulse Width 0.4 CV DEVICE CHECK Dileep Setting Mode (NBG Code) VVI CV DEVICE CHECK Dileep Setting Lower Rate Limit 40 CV DEVICE CHECK RV HV Impedance 88 CV D EVICE CHECK Zone Setting Type [...] 5 CV DEVICE CHECK Date of Service 2025-08-19 CV DEVICE CHECK Anatomical Region Laterality Modality Device Interroga tion 10/29/2024 Impressions 11/08/2024 7:37 AM EDT Normal In-Office: No Events * Patient brought into clinic due to device toning at 10 AM this morning * Normal Device Function * Alerts or events: None * Battery: SEE PDF, 16 months * Sensing, impedance and thresholds reviewed and tested, all within normal limits. * Device did not read any alerts that would result in the device toning. Heart Failure Diagnostic: Stable * Heart failure diagnostics assessed through the device * Status: Stable * No overt HF present Narrative Procedure Note Chester Weiner MD - 11/08/2024 IMPRESSION: Normal In-Office: No Events * Patient brought into clinic due to device toning at 10 AM thismorning * Normal Device Function * Alerts or events: None * Battery: SEE PDF, 16 months * Sensing, impedance and thresholds reviewed and tested, all within normallimits. * Device did not read any alerts that would result in the device toning. Heart Failure Diagnostic: Stable * Heart failure diagnostics assessed through the device * Status: Stable * No overt HF present us Order Referral Cardiovascular CV IMPLANTABLE CAR DIAC DEVICE PROCEDURES Final Result from Last 3 Months Insurance CIG[employer] Advance Directives Documents on File Type Date Recorded Patient Electronic Drafter Expl anation Health Care Decision (hx) 01/21/2014 [...] (hx) 01/18/2014 AD SWARTZ DIRECTIVE Care Teams Package Winder Relationship Specialty Start Date End Date Bella Concepcion MD [address] [place] [address] PCP - General Internal Medicine 08/17/24
== END 2024-11-18 12:01 | disposition home or self-care (01) ==
LOC: HO.BBR 12:00
PROVIDERS: PCP Internal Medicine; Visit Provider Urology
DX: D75.1 Secondary polycythemia (principal)
CPT/HCPCS: 85018; 99195

== ENCOUNTER 2025-03-10 08:20 | Outpatient (REF) | payer OTHER, SELFPAY ==
--- OUTSIDE RECORDS SUMMARY | 2023-10-29 11:30 | XMS_ITS ---
Author Organization Bella Concepcion MD Address [address] [place] [phone] Care Team Providers Care Studio Data Analyst Name Role Phone Bella Concepcion Primary Care Provider [phone] Nikole Edwards [phone] REASON FOR VISIT annual Encounters Encounter Location Date Provider Diagnosis Bella Concepcion MD [address] [place] [address] [place] [phone] 10/29/2023 Nikole Hare Plan Of Treatment Next Appt Details Provider Name:Bella Concepcion , 05/25/2025 03:15:00 PM, [address] [place] [address], [phone], Provider Name:Bella Concepcion , 11/23/2025 04:00:00 PM, [address] [place] [address], [phone], Progress Notes * Jas SARAVIADOB:[birth year] (64 yo M)Acc No.[id number]:10/29/2023 Patient: Agata BARBOZA Jas Appointment Provider: Claudy Hare DNP :1960 A ge:62 Y S ex:Male Date:10/29/2023 Address:[address] [place], [place] [phone] Pcp:Bella Concepcion Subjective: * Chief Complaints: * 1 . Annual. * Medical History: Objective: * Vitals: Past Vitals:* 05/20/2023 Temp:95.3F, HR:84/min, BP: S itting Right Arm: 108/54 mm Hg,Standing Right Arm: 108/58mm Hg, Wt:233.00lbs, BMI:36.49Index, Ht:5 ft 7 in, Oxygen sat %:98% * 03/10/2023 Temp:97.6F, HR:83/min, BP:Si tting Right Arm:94/50mm Hg, Wt:233lbs, BMI:36.49Index, Ht:5 ft 7 in, Oxygen sat %:96% * 11/07/2022 HR:86/min, BP:108/56mm Hg, W t:239lbs, BMI:37.43Index, Ht:5 ft 7 in, Oxygen sat %:96% Assessment: Plan: * Treatment: * Images: Billing Information: * Visit Code: * Procedure Codes: * Electronic signature of Pedro Luis Hare DNP on 03/10/2025 at 08:57 AM EDT Sign off status: Pending * Appointment Provider: Claudy Hare DNP Date: 0 10/29/2023 Generated for Bernardo cheung/Asher/Sammy on: 1 08:57 AM EDT
--- OUTSIDE RECORDS SUMMARY | 2025-03-10 08:57 | XMS_ITS | Clinical Summary ---
Author Organization [facility] Address [address] [facility] [address] [place] [phone] Phone Care Team Providers Care Sloop Captain Name Role Phone Juan Miguel Concepcion MD Primary Care Provider Allergies No known active allergies Medications carvedilol (COREG) 25 MG tablet Take 25 mg by mouth 2 (two) times a day. 12/01/2020 Active finasteride (PROSCAR) 5 mg tablet Take 5 mg by mouth daily. 11/20/2020 Active pravastatin (PRAVACHOL) 40 MG tablet Take 40 mg by mouth daily. 02/20/2014 Active ENTRESTO 97-103 mg per tablet Take by mouth 2 (two) times a day. 12/01/2020 Active spironolactone (ALDACTONE) 25 MG tablet Take 25 mg by mouth daily. 02/07/2021 Active cholecalciferol (VITAMIN D3) 2,000 unit capsule Take 2,000 Units by mouth daily. Active docosahexaenoic acid/epa (FISH OIL ORAL) Take 500 mg by mouth daily. Active multivit-min/FA /lycopen/lutein (CENTRUM SILVER MEN ORAL) Take by mouth daily. Active glucosam/chond- msm1/C/chantel/bor (GLUCOSAMINE-CH OND-MSM COMPLEX ORAL) Take by mouth daily. Active Lactobac no.41/Bifidobac t no.7 (PROBIOTIC-10 ORAL) Take by mouth daily. Active Medication-Free Text daily. Prostate Vitamins Active Social History Tobacco Use Types Packs/Day Years Used Date Smoking Tobacco: Former Smokeless Tobacco: Never Comments:Smokes [employer] Education Answer Date Recorded Are you interested in more education? Not on altaf e 09/07/2022 Are you concerned about learning? Not on file 09/07/2022 No 09/07/2022 No 09/07/2022 Digital Access Answer Date Recorded No 10/02/2022 No 10/02/2022 No 10/02/2022 Reliable internet access at home? Not on file 10/02/2022 Device with a working camera? Not on file Sex and Gender Information Value Date Recorded Sex Assigned at Male 01/24/2021 12:18 PM EDT Legal Sex Male 12:15 PM EDT Gender Identity Male 01/24/2021 12:18 PM EDT Sexual Orientation Lesbian or Palacios 01/24/2021 12 :18 PM EDT Last Filed Vital Signs Vital Sign Reading Time Taken Comments Blood Pressure 106/70 02/23/2021 10:00 AM EDT Pulse 66 02/23/2021 10:00 AM EDT Temperature - - Respiratory Rate - - Oxygen Saturation 96% 02/23/2021 10: 00 AM EDT Inhaled Oxygen Concentration - - Weight 108.4 kg (238 lb 14.4 oz) 2020 10:00 AM EDT Height - - Body Mass Index - - Plan of Treatment Health Maintenance Due Date Last Done Comments LIPID PANEL 1962 SMOKING Hx and SMOKELESS TOBACCO SCREENING 12/16/1975 HEPATITIS C SCREENING 1980 HIV ONE-TIME SCREENING (18-6 5 YEARS) 1980 COLOGUARD 12/16/2007 COLONOSCOPY 12/16/2007 COLORECTAL CANCER SCREENING 12/16/2007 FIT TEST 12/16/2007 FOBT 12/16/2007 SIGMOIDOSCOPY 12/16/2007 VIRTUAL COLONOSCOPY 12/16/2007 PNEUMOCOCCAL VACCINES (50+ years) (1 of 1 - PCV) 2012 ZOSTER VACCINES (1 of 2) 2012 DEPRESSION SCREENING 02/23/2022 02/23/2021 POTASSIUM LEVEL 02/23/2022 02/23/2021 Adult Td,Tdap Booster 05/23/2022 05/23/2012 INFLUENZA VACCINE (#1) 2024 COVID-19 VACCINE (3 - 2024-2 6 season) 2025 07/05/2020, 06/07/2020 RSV VACCINE (1 - 1-dose 75+ series) 2037 HEPATITIS A VACCINES Aged Out No long er eligible based on patient's age to complete this topic HIB VACCINES Aged Out No longer eligi ble based on patient's age to complete this topic MENINGOCOCCAL VACCINES (ACWY) Aged Out No longer eligible based on patient's age to complete this topic MENINGOCOCCAL VACCINES (B) Aged Out N o longer eligible based on patient's age to complete this topic Medical Devices Not on file Procedures Procedure Name Priority Date/Time Associated Diagnosis Comments BASIC METABOLIC PANEL Routine 02/23/2021 11:24 AM EDT Chronic systolic congestive heart failure from Last 3 Months or Most Recently Relevant to Health Maintenance Results * (ABNORMAL) Basic metabolic panel (02/23/2021 11:24 AM EDT) SODIUM 142 136 - 145 mmol/L [facility] POTASSIUM 4.9 3.4 - 5.1 mmol/L [facility] CHLORIDE 103 98 - 107 mmol/L [facility] CO2 28 22 - 31 mmol/L [facility] BUN 25(H) 6 - 23 mg/dL [facility] CREATININE 1.26(H) 0.50 - 1.20 mg/dL [facility] GLUCOSE 97 70 - 100 mg/dL [facility] CALCIUM 10.1 8.8 - 10.7 mg/dL [facility] EGFR 62 >59 mL/min/1. 73m2 [facility] Comment:Estimated glomerular filtration rate calculated using the CKD-EPI equation. ANION GAP 11 7 - 17 mmol/L [facility] 02/23/2021 11:2 4 AM EDT 02/23/2021 12:06 PM EDT Santos Obando MD LAB BLOOD ORDERABLES Final Result [facility] [address] [place] [id number] from Last 3 Months or Most Recently Relevant to Health Maintenance Insurance CIGNA PPO CIGNA PPO CIGNA PPO CIGNA PPO CIGNA PPO CIGNA PPO CIGNA PPO CIGNA PPO CIGNA PPO Care Teams Sloop Captain Relationship Specialty Start Date End Date Juan Miguel Concepcion MD [address] [place] [id number] [email or web address] PCP - General Internal Medicine 01/24/21 Additional Source Comments The information contained in this document represents components of the legal health record. It is not the complete legal health record.[facility]
--- OUTSIDE RECORDS SUMMARY | 2025-03-10 08:57 | XMS_ITS | Patient Health Record ---
Author Organization Bella Concepcion MD Address [address] [phone] Care Team Providers Care Bicycle Racer Name Role Phone Bella Concepcion Primary Care Provider Allergies No Known Allergies Results Component Value Reference Range Notes Hemoglobin [id number] Reviewed date:11/19/2024 03:55:20 PM Interpretation: Performing Lab:[facility], [address] [place] [address], Phone - [phone], Director - Esther Notes/Report: Hemoglobin A1c 5.4 4.8-5.6 % . Prediabetes: 5.7 - 6.4 Diabetes: >6.4 Glycemic control for adults with diabetes: <7.0 Magnesium-[id number] Reviewed date:11/19/2024 03:55:20 PM Interpretation: Performing Lab:[facility], [address] [facility], Phone - [phone], Director - Esther Notes/Report: Magnesium 2.4 1.6-2.3 mg/dL Urinalysis, Complete-[id number] Reviewed date:11/19/2024 03:55:20 PM Interpretation: Performing Lab:[facility] [place], [address] [place] [address], Phone - [phone], Director - Esther Notes/Report: Specific [place] 1.026 1.005-1.030 pH 5.5 5.0-7.5 Urine-Color Yellow [...] None seen None seen/Few CBC With Differential/Platel et-[id number] Reviewed date:11/19/2024 03:55:20 PM Interpretation: Performing [facility], [address] [facility], Phone - [phone], Director - MDJodry Notes/Report: WBC 8.7 3.4-10.8 [...] Immature Grans (Abs) 0.0 0.0-0.1 x10E3/uL Prostate-Specific Ag-[id number] Reviewed date:11/19/2024 03:55:20 PM Interpretation: Performing Lab:[facility], [address] [facility], [place], Phone - [phone], Director [facility] Notes/Report: Prostate Specific Ag 1.1 0.0-4.0 ng/mL Simran ECLIA methodology. . According to the [place] [employer], Serum PSA should decrease and [...] or absence of malignant disease. Vitamin D, 04-Cyjnllf-910807 Reviewed date:11/19/2024 03:55:20 PM Interpretation: Performing Lab:[facility], [address] [place] [address], Phone - [phone], Director - MDdry Notes/Report: Vitamin D, 25-Hydroxy 34.1 30.0-100.0 ng/mL Vitamin D deficiency has been defined by the [place] of Medicine and an Endocrine Society practice guideline as a level of serum 25-OH vitamin D less than 20 ng/mL (1,2). The Endocrine Society went on to further define vitamin D insufficiency as a level between 21 and 29 ng/mL (2). 1. IOM ([place] of Medicine). 2010. Dietary reference intakes for calcium and D. [place]: The National Academies Press. 2. Jeanne MF, Tristen NC, Sandy BROCK, et al. Evaluation, treatment, and prevention of vitamin D deficiency: an Endocrine Society clinical practice guideline. JCEM. 2010; 96(7):1911-30. B-Type Natriuretic Peptide-1 45923 Reviewed date:11/19/2024 03:55:21 PM Interpretation: Performing Lab:[facility], [address] [place] [address], Phone - [phone], Director - Esther Notes/Report: B-Type Natriuretic Peptide 10.6 0.0-100.0 pg/m L Siemens ADVIA Centaur XP methodology Comp. Metabolic Panel (14)-3 03328 Reviewed date:11/19/2024 03:55:21 PM Interpretation: Performing Lab:[facility] [address] [place] [address], [place], Phone - [phone], Director - Esther Notes/Report: Glucose 92 70-99 mg/dL BUN 21 [...] IU/L ALT (SGPT) 18 0-44 IU/L LP+Non-HDL Cholesterol-89027 5 Reviewed date:11/19/2024 03:55:21 PM Interpretation: Performing Lab:[facility], [facility], Phone - [phone], Director - [facility] Notes/Report: Cholesterol, Total 196 100-199 mg/dL Triglycerides 178 0-149 mg/dL HDL Cholesterol 48 >39 mg/dL VLDL Cholesterol Colin 31 5-40 mg/dL LDL Chol Calc (NIH) 117 0-99 mg/dL Non-HDL Cholesterol 148 0-129 mg/dL HCV Antibody-[id number] Reviewed date:11/19/2024 03:55:21 PM Interpretation: Performing Lab:[facility], [facility], [place], Phone - [phone], Director - [facility] Notes/Report: Hep C Virus Ab Non Reactive [...] General Notes Khadijah ERWIN 12/2024 05:17:38 PM >faxed, Khadijah ERWIN 01/06/2025 03:40:58 PM >booked 02/09/[address] Doty Referral Priority Routine Medications Medication SIG (Take, [...] Vaccine Route Administration Date Status Comme nts Influenza, seasonal, injectable, preservative free, 4 yrs and above IM Intramuscular 01/18/2016 Administered [id number]-19-Kbsfcrl Vaccine Unknown 06/04/2020 Administere d NEYMZ-23-Lpcfvox Vaccine Unknown 07/05/2020 Administere d COVID-19 Moderna BiValent Booster Unknown 02/16/2022 Administered COVID Spikevax Moderna Unknown 02/13/2024 Administered COVID COMIRNATY Pfizer Unknown 02/07/2023 Administered *Tdap Unknown 02/13/2024 Administered *PREVNAR 20 IM Intramuscular 11/16/2024 Administered *Influenza-Medicare-AS IM Intramuscular 03/13/2021 Adminis tered [id number] Afluria-Single IM Intramuscular 03/18/2018 Administered Influenza-Afluria (IIV4) IM Intramuscular 03/14/2017 Admin istered Pneumococcal polysaccharide PPV23 Unknown 05/03/2008 Administered RSV Unknown 01/23/2023 Administered Td (adult) preservative free Unknown 06/21/2004 Administered Td (adult) preservative free Unknown 05/12/2012 Administered Social History Tobacco Use: Social History Observation [...] Status Risk Notes Problem Vitamin D deficiency (74211369) Vitamin D deficiency, unspecified (E55.9) Active confirmed Problem Obesity due to excess calories (134203354) Other obesity due to excess calories (E66.09) Active confirmed Problem Mixed hyperlipidemia (989502173) Mixed hyperlipidemia (E78.2) Active confirmed Problem Tobacco user (658652221) Nicotine dependence, cigarettes, in remission (F17.211) Active confirmed Problem Hypertensive heart AND renal disease (93276680) Hypertensive heart and chronic 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 heart failure, with stage 1 through stage 4 chronic kidney disease, or unspecified chronic kidney disease (I13.10) Active confirmed Problem Cardiomyopathy (59719169) Cardiomyopathy, unspecified (I42.9) Active confirmed Problem Ventricular premature depolarization (456251643) Ventricular premature depolarization (I49.3) Active confirmed Problem Chronic systolic heart failure (220277685) Chronic systolic (congestive) heart failure (I50.22) Active confirmed Problem Impingement syndrome of shoulder region (424692468) Impingement syndrome of right shoulder (M75.41) Active confirmed Problem Chronic kidney disease stage 2 (332977295) Chronic kidney disease, stage 2 (mild) (N18.2) Active confirmed Problem Paresthesia (finding) (10028738) Paresthesia of skin (R20.2) Active confirmed Problem Automatic implantable cardiac defibrillator in situ (475098507) Presence of automatic (implantable) cardiac defibrillator (Z95.810) Active confirmed Problem Benign prostatic hypertrophy without outflow obstruction (574383664) Benign prostatic hyperplasia without lower urinary tract symptoms (N40.0) Active confirmed Problem Body mass index 35.00 to 39.99 (568552905233340) Body mass index [BMI] 37.0-37.9, adult (Z68.37) Active confirmed Problem Ventricular tachycardia (disorder) (98868364) Ventricular tachycardia, unspecified (I47.20) Active confirmed Problem Personal history of adenomatous and serrated colon polyps (Z86.0101) Active confirmed Problem Testicular hypofunction (469802078) Testicular hypofunction (E29.1) Inactive confirmed Problem Tinnitus (55496988) Tinnitus, unspecified ear (H93.19) Inactive confirmed Problem Chronic kidney disease stage 3 (907529093) Chronic kidney disease, stage 3 (moderate) (N18.3) Problem resolved confirmed Vital Signs Heart Rate 86 /min 11/16/2024 Temperature 97.1 degrees Fahrenheit 11/16/2024 Oximetry 95 % 11/16/2024 Blood pressure diastolic 54 mm Hg 11/16/2024 Height 5 ft 7 in in 11/16/2024 Blood pressure systolic 106 mm Hg 11/16/2024 Weight 223 lbs 11/16/2024 BMI 34.92 kg/m2 11/16/2024 Encounters Encounter Location Date Provider Diagnosis Bella Concepcion MD [address] [id number] 09/17/2024 Bella Concepcion MD [address] [id number] 10/06/2024 Bella Concepcion MD [address] [id number] 11/19/2024 Bella Concepcion MD [address] [id number] 10/06/2024 Bella Concepcion MD [address] [id number] 11/16/2024 Bella Concepcion Encounter for genera l [...] other viral diseases Z11.59 and Glycosuria R81 Assessments Encounter Date Diagnosis (ICD Code) Assessment Notes Treatment Notes Treatment Clinical Notes Section Notes 11/16/2024 Hypertensive heart and chronic kidney disease [...] to have an ejection fraction of 30% 11/16/2024 Chronic systolic (congestive) heart failure (ICD-10 [...] Provider Name:Bella Concepcion , 05/25/2025 03:15:00 PM, [address] [place] [address], [address], [phone], Provider Name:Bella Concepcion , 11/23/2025 04:00:00 PM, [address] [place] [address], [address], [phone], Insurance Providers Payer Name Payer Address Payer Phone Subscriber Number Group Number Insured Name Patient Relationship to Insured Coverage Start Date Coverage End Date [address] [address] [place] [phone] [id number] Jas Saravia Self - patient is the [...]
== END 2025-03-10 08:21 | disposition home or self-care (01) ==
LOC: HO.BBR 08:20
PROVIDERS: PCP Internal Medicine; Visit Provider Urology
DX: D75.1 Secondary polycythemia (principal)
CPT/HCPCS: 85018; 99195